=== PATIENT | male | born 1975 | race Caucasian/White ===

== ENCOUNTER 2018-07-01 09:56 | Inpatient (IN) | payer OTHER ==
[2018-07-01 10:25] VITALS: BMI 21.2
--- NOTE | 2018-07-01 10:46 | HP ---
CIWA Score - CIWA Score Nausea/Vomitin Muscle Tremors: 2 Anxiety: 2 Agitation: 2 Paroxysmal Sweats: 1-Minimal Palms Moist Orientation: 0-Oriented Tacttile Disturbances: 1-Very Mild Itch/Numbness Auditory Disturbances: 1-Very Mild Visual Disturbances: 0-None Headache: 2-Mild CIWA-Ar Total Score: 13 Admission ROS BHS - HPI Chief Complaint: ii need help to stop drinking alcohol Allergies/Adverse Reactions: Allergies Allergy/AdvReac Type Severity Reaction Status Date / Time No Known Allergies Allergy Verified 07/01/18 10:43 History of Present Illness: this 43 years old male with alcohol and cocaine dependence,seeking detox, withdral symptom,last detox in 2013 in [place] history of blackout bilateral inguinal hernia right inguinal hernia repair in 2016 but recur weight loss insomnia nicotine dependence - Ebola screening Have you traveled outside of the country in the last 21 days: No Have you had contact with anyone from an Ebola affected area: No Have you been sick,other than usual withdrawal symptoms: No Do you have a fever: No - Review of Systems Constitutional: Loss of Appetite, Night Sweats, Changes in sleep, Weakness, Unintentional Wgt. Loss EENT: reports: Nose Congestion Respiratory: reports: No Symptoms reported Cardiac: reports: No Symptoms Reported GI: reports: Nausea, Poor Appetite, Abdominal cramping Musculoskeletal: reports: Back Pain, Muscle Pain Integumentary: reports: Dryness Neuro: reports: Headache, Tremors Endocrine: reports: No Symptoms Reported Hematology: reports: No Symptoms Reported Psychiatric: reports: No Sypmtoms Reported, Judgement Intact, Mood/Affect Appropiate, Orientated x3 Patient History - Patient Medical History Hx Anemia: No Hx Asthma: No Hx Chronic Obstructive Pulmonary Disease (COPD): No Hx Cancer: No Hx Cardiac Disorders: No Hx Congestive Heart Failure: No Hx Hypertension: No Hx Hypercholesterolemia: No Hx Pacemaker: No HX Cerebrovascular Accident: No Hx Seizures: No Hx Dementia: No Hx Diabetes: No Hx Gastrointestinal Disorders: No Hx Liver Disease: No Hx Genitourinary Disorders: No Hx Sexually Transmitted Disorders: No Hx Renal Disease (ESRD): No Hx Thyroid Disease: No Hx Human Immunodeficiency Virus (HIV): No (last 2017 negative) Hx Hepatitis C: No Hx Depression: No Hx Suicide Attempt: No Hx Bipolar Disorder: No Hx Schizophrenia: No Other Medical History: insomnia,no suicidal,no homicidal,inguinal hernia bilarteral - Patient Surgical History Past Surgical History: Yes Other Surgical History: right inguinal hernia repair in 2016 - PPD History Previous Implant?: Yes Documented Results: Negative w/o proof Implanted On Prior [facility] Admission?: No PPD to be Administered?: Yes - Smoking Cessation Smoking history: Current every day smoker Have you smoked in the past 12 months: Yes Aproximately how many cigarettes per day: 20 Cigars Per Day: 0 Hx Chewing Tobacco Use: No Initiated information on smoking cessation: Yes 'Breaking Loose' booklet given: 07/01/18 - Substance & Tx. History Hx Alcohol Use: Yes Hx Substance Use: Yes Substance Use Type: Alcohol, Cocaine Hx Substance Use Treatment: Yes (in [place]) - Substances Abused Alcohol-rum/beer Route: Oral Frequency: Daily Amount used: 1 pt./3-4 6 pks. Age of first use: 15 Date of Last Use: 06/30/18 Crack Route: Smoking Frequency: Daily Amount used: 100$ Age of first use: 38 Date of Last Use: 06/30/18 Family Disease History - Family Disease History Family History: Denies Admission Physical Exam S - Vital Signs Vital Signs: Vital Signs - 24 hr 07/01/18 10:22 Temperature 98.1 F Pulse Rate 72 Respiratory 18 Rate Blood Pressure 107/68 - Physical General Appearance: Yes: Moderate Distress, Tremorous, Irritable, Sweating, Anxious HEENTM: Yes: Normal ENT Inspection, NAVI, Pharynx Normal Respiratory: Yes: Within Normal Limits, Lungs Clear, Normal Breath Sounds Neck: Yes: Within Normal Limits, Supple, Trachea in good position Breast: Yes: Within Normal Limits Cardiology: Yes: Within Normal Limits, Regular Rhythm, Regular Rate, S1, S2 Abdominal: Yes: Within Normal Limits, Normal Bowel Sounds, Non Tender, Flat, Soft, Surgical Scar (right inguinal scar with hernia left inguinal hernia) Genitourinary: Yes: Within Normal Limits Back: Yes: Muscle Spasm Musculoskeletal: Yes: Back pain, Muscle Pain Extremities: Yes: Within Normal Limits, Normal Range of Motion, Tremors Neurological: Yes: green coffee blender II-XII NML intact, Fully Oriented, Alert, Motor Strength 5/5 Integumentary: Yes: Dry Lymphatic: Yes: Within Normal Limits - Diagnostic (1) Alcohol dependence with uncomplicated withdrawal Current Visit: Yes Status: Acute (2) Cocaine dependence Current Visit: Yes Status: Acute (3) Nicotine dependence Current Visit: Yes Status: Acute (4) Weight loss Current Visit: Yes Status: Acute (5) Insomnia Current Visit: Yes Status: Acute (6) Inguinal hernia, bilateral Current Visit: Yes Status: Acute (7) Recurrent right inguinal hernia Current Visit: Yes Status: Acute Cleared for Admission BHS - Detox or Rehab S Level of Care: Medically Managed Detox Regimen/Protocol: Librium BHS Breath Alcohol Content Breath Alcohol Content: 0 Urine Drug Screen - Results Drug Screen Negative: No Urine Drug Screen Results: CRISTOBAL-Cocaine
[2018-07-01] MEDS ORDERED: IBUPROFEN 400 MG TABLET (FP) PO PRN (11:05)
[2018-07-01] MEDS ORDERED: MAGNESIUM CITRATE 300 ML BOTTLE PO PRN (11:05)
[2018-07-01] MEDS ORDERED: ACETAMINOPHEN 325 MG TABLET (FP) PO PRN (11:05)
[2018-07-01] MEDS ORDERED: LOPERAMIDE HCL 2 MG CAPSULE PO PRN (11:05)
[2018-07-01] MEDS ORDERED: NICOTINE POLACRILEX 2 MG GUM BUC PRN (11:05)
[2018-07-01] MEDS ORDERED: chlordiazePOXIDE HCL 25 MG CAPSULE PO PRN (11:05)
[2018-07-01] MEDS ORDERED: MAGNESIUM HYDROX 2400MG/30ML ORAL SUSPENSION 30 ML CUP PO PRN (11:05)
[2018-07-01] MEDS ORDERED: MAG HYDROX/AL HYDROX/SIMETH 30 ML UNIT-DOSE CUP PO PRN (11:05)
[2018-07-01] MEDS ORDERED: P-EPHED 60MG/TRIPROLIDI 2.5MG TABLET PO PRN (11:05)
[2018-07-01] MEDS: NICOTINE 21 MG/24 HOURS TOPICAL PATCH TD SCH (12:17)
--- NOTE | 2018-07-01 15:38 | EKG ---
Test Reason : Blood Pressure : / mmHG Vent. Rate : 060 BPM Atrial Rate : 060 BPM P-R Int : 130 ms QRS Dur : 084 ms QT Int : 410 ms P-R-T Axes : 048 028 034 degrees QTc Int : 410 ms NORMAL SINUS RHYTHM NORMAL ECG NO PREVIOUS ECGS AVAILABLE Confirmed by KAYKAY NICOLE, MARS ([id number]) on 07/01/2018 3:38:23 PM Referred By: Confirmed By:MARS MCCRACKEN MD
[2018-07-01] MEDS: chlordiazePOXIDE HCL 25 MG CAPSULE PO SCH ×2 (17:33→22:10)
[2018-07-01 19:27] LABS: URINE APPEARANCE CLEAR; URINE BILIRUBIN NEGATIVE (<2.0 mg/dL); URINE COLOR DKYELLOW; URINE GLUCOSE (UA) NEGATIVE (NEGATIVE); URINE KETONE NEGATIVE (NEGATIVE); URINE LEUK ESTERASE NEGATIVE (NEGATIVE); URINE NITRITE NEGATIVE (NEGATIVE); URINE PROTEIN 1+ (NEGATIVE)
[2018-07-01 19:29] LABS: EPI CELLS RARE /HPF (FEW); URINE MUCUS FEW
[2018-07-01] MEDS: THIAMINE HCL 100 MG TABLET (FP) PO SCH (22:09)
[2018-07-02] MEDS: chlordiazePOXIDE HCL 25 MG CAPSULE PO SCH ×3 (05:50→22:22)
[2018-07-02] MEDS ORDERED: chlordiazePOXIDE HCL 25 MG CAPSULE PO PRN (09:59)
[2018-07-02] MEDS ORDERED: chlordiazePOXIDE HCL 25 MG CAPSULE PO SCH ×2 (09:59→17:00)
[2018-07-02 10:20] LABS: HEMATOCRIT 45.9 % (35.4-49); HEMOGLOBIN 14.8 GM/dL (11.7-16.9); MCH 31.8 pg (25.7-33.7); MCHC 32.2 g/dl (32.0-35.9); MEAN CELL VOLUME 98.9 fl (80-96); MEAN PLT VOLUME 7.8 fl (7.5-11.1); PLATELET COUNT 253 K/MM3 (134-434); RBC 4.64 M/mm3 (4.00-5.60); WHITE BLOOD COUNT 7.2 K/mm3 (4.0-10.0)
[2018-07-02] MEDS: PRENATAL VITAMINS W/ FOLIC ACID TABLET (FP) PO SCH (10:20)
[2018-07-02] MEDS: NICOTINE 21 MG/24 HOURS TOPICAL PATCH TD SCH (10:22)
[2018-07-02 10:38] LABS: ALBUMIN 3.7 g/dl (3.4-5.0); ALK PHOS 73 U/L (45-117); ANION GAP 8 MMOL/L (8-16); BILIRUBIN,TOTAL 0.4 mg/dL (0.2-1); BLOOD UREA NITROGEN 10 mg/dL (7-18); CALCIUM 8.7 mg/dL (8.5-10.1); CHLORIDE 106 mmol/L (98-107); CO2 27 mmol/L (21-32); CREATININE 0.8 mg/dL (0.55-1.3); GLUCOSE,RANDOM 96 mg/dL (74-106); POTASSIUM 4.5 mmol/L (3.5-5.1); SGOT/AST 20 U/L (15-37); SGPT/ALT 20 U/L (13-61); SODIUM 141 mmol/L (136-145); TOT PROT 6.8 g/dl (6.4-8.2)
--- NOTE | 2018-07-02 14:48 | PN ---
S CIWA - CIWA Score Nausea/Vomitin Muscle Tremors: 4-Moderate,w/Arms Extend Anxiety: 4-Mod. Anxious/Guarded Agitation: 3 Paroxysmal Sweats: 3 Orientation: 0-Oriented Tacttile Disturbances: 0-None Auditory Disturbances: 0-None Visual Disturbances: 0-None Headache: 0-None Present CIWA-Ar Total Score: 16 S Progress Note (SOAP) Subjective: Tremor, chills Objective: 07/02/18 14:43 Last Vital Signs Temp Pulse Resp BP Pulse Ox 98.0 F 72 18 104/62 07/02/18 13:19 07/02/18 13:19 07/02/18 13:19 07/02/18 13:19 Laboratory Tests 07/01/18 07/01/18 07/02/18 12:00 14:30 06:00 WBC 7.2 RBC 4.64 Hgb 14.8 Hct 45.9 MCV 98.9 H MCH 31.8 MCHC 32.2 RDW 13.0 Plt Count 253 MPV 7.8 Sodium Potassium Chloride Carbon Dioxide Anion Gap BUN Creatinine Creat Clearance w eGFR Random Glucose Calcium Total Bilirubin AST ALT Alkaline Phosphatase Total Protein Albumin Urine Color Dkyellow Urine Appearance Clear Urine pH 5.0 Ur Specific [place] 1.027 Urine Protein 1+ H Urine Glucose (UA) Negative Urine Ketones Negative Urine Blood 1+ H Urine Nitrite Negative Urine Bilirubin Negative Urine Urobilinogen 2.0 Ur Leukocyte Esterase Negative Urine WBC (Auto) 3 Urine RBC (Auto) 15 Ur Epithelial Cells Rare Urine Mucus Few RPR Titer HIV 1&2 Antibody Screen Negative HIV P24 Antigen Negative 07/02/18 07/02/18 06:00 06:00 WBC RBC Hgb Hct MCV MCH MCHC RDW Plt Count MPV Sodium 141 Potassium 4.5 Chloride 106 Carbon Dioxide 27 Anion Gap 8 BUN 10 Creatinine 0.8 Creat Clearance w eGFR > 60 Random Glucose 96 Calcium 8.7 Total Bilirubin 0.4 AST 20 ALT 20 Alkaline Phosphatase 73 Total Protein 6.8 Albumin 3.7 Urine Color Urine Appearance Urine pH Ur Specific [place] Urine Protein Urine Glucose (UA) Urine Ketones Urine Blood Urine Nitrite Urine Bilirubin Urine Urobilinogen Ur Leukocyte Esterase Urine WBC (Auto) Urine RBC (Auto) Ur Epithelial Cells Urine Mucus RPR Titer Nonreactive HIV 1&2 Antibody Screen HIV P24 Antigen Labs reviewed: abnormal UA Assessment: 07/02/18 14:48 Withdrawal symptoms Noted with abnormal UA Plan: Continue detox Abnormal UA: encouraged PO water intake, repeat UA
[2018-07-02] MEDS: THIAMINE HCL 100 MG TABLET (FP) PO SCH (22:21)
[2018-07-02] MEDS: MELATONIN 5 MG TABLETS PO PRN (22:22)
[2018-07-03] MEDS: chlordiazePOXIDE HCL 25 MG CAPSULE PO SCH ×2 (06:37→10:30)
[2018-07-03] MEDS: PRENATAL VITAMINS W/ FOLIC ACID TABLET (FP) PO SCH (10:30)
[2018-07-03] MEDS: NICOTINE 14 MG/24 HOURS TOPICAL PATCH TD SCH (10:30)
--- NOTE | 2018-07-03 15:08 | PN ---
S CIWA - CIWA Score Nausea/Vomitin-Mild Nausea/No Vomiting Muscle Tremors: 3 Anxiety: 2 Agitation: 3 Paroxysmal Sweats: 3 Orientation: 0-Oriented Tacttile Disturbances: 1-Very Mild Itch/Numbness Auditory Disturbances: 0-None Visual Disturbances: 0-None Headache: 1-Very Mild CIWA-Ar Total Score: 14 BHS Progress Note (SOAP) Subjective: Anxious, irritable, agitated, interrupted sleep. Patient stated he wants to leave [facility] because he wants to be reassured of having a rehab bed here on Friday. Lithographic Etcher encouraged patient to speak with his counselor. Patient later decided to stay and complete detox. Objective: 07/03/18 15:06 Last Vital Signs Temp Pulse Resp BP Pulse Ox 98.7 F 74 19 109/63 07/03/18 14:25 07/03/18 14:25 07/03/18 14:25 07/03/18 14:25 Laboratory Tests 07/01/18 07/01/18 07/02/18 12:00 14:30 06:00 WBC 7.2 RBC 4.64 Hgb 14.8 Hct 45.9 MCV 98.9 H MCH 31.8 MCHC 32.2 RDW 13.0 Plt Count 253 MPV 7.8 Sodium Potassium Chloride Carbon Dioxide Anion Gap BUN Creatinine Creat Clearance w eGFR Random Glucose Calcium Total Bilirubin AST ALT Alkaline Phosphatase Total Protein Albumin Urine Color Dkyellow Urine Appearance Clear Urine pH 5.0 Ur Specific [place] 1.027 Urine Protein 1+ H Urine Glucose (UA) Negative Urine Ketones Negative Urine Blood 1+ H Urine Nitrite Negative Urine Bilirubin Negative Urine Urobilinogen 2.0 Ur Leukocyte Esterase Negative Urine WBC (Auto) 3 Urine RBC (Auto) 15 Ur Epithelial Cells Rare Urine Mucus Few RPR Titer HIV 1&2 Antibody Screen Negative HIV P24 Antigen Negative 07/02/18 07/02/18 06:00 06:00 WBC RBC Hgb Hct MCV MCH MCHC RDW Plt Count MPV Sodium 141 Potassium 4.5 Chloride 106 Carbon Dioxide 27 Anion Gap 8 BUN 10 Creatinine 0.8 Creat Clearance w eGFR > 60 Random Glucose 96 Calcium 8.7 Total Bilirubin 0.4 AST 20 ALT 20 Alkaline Phosphatase 73 Total Protein 6.8 Albumin 3.7 Urine Color Urine Appearance Urine pH Ur Specific [place] Urine Protein Urine Glucose (UA) Urine Ketones Urine Blood Urine Nitrite Urine Bilirubin Urine Urobilinogen Ur Leukocyte Esterase Urine WBC (Auto) Urine RBC (Auto) Ur Epithelial Cells Urine Mucus RPR Titer Nonreactive HIV 1&2 Antibody Screen HIV P24 Antigen Labs reviewed: UA abnormal Assessment: 07/03/18 15:07 Withdrawal symptoms Noted with abnormal UA Plan: Continue detox Abnormal UA: encouraged PO water intake, follow up on repeated UA result
[2018-07-03 16:22] LABS: URINE APPEARANCE SLCLOUDY; URINE BILIRUBIN NEGATIVE (<2.0 mg/dL); URINE COLOR AMBER; URINE GLUCOSE (UA) NEGATIVE (NEGATIVE); URINE KETONE TRACE (NEGATIVE); URINE LEUK ESTERASE TRACE (NEGATIVE); URINE NITRITE NEGATIVE (NEGATIVE); URINE PROTEIN 2+ (NEGATIVE)
[2018-07-03 16:37] LABS: URINE MUCUS MANY
[2018-07-03] MEDS ORDERED: chlordiazePOXIDE 5 MG CAPSULE PO SCH (17:00)
[2018-07-03] MEDS: chlordiazePOXIDE 5 MG CAPSULE PO SCH ×2 (17:35→22:22)
[2018-07-03] MEDS: THIAMINE HCL 100 MG TABLET (FP) PO SCH (22:22)
[2018-07-03] MEDS: MELATONIN 5 MG TABLETS PO PRN (22:23)
[2018-07-04] MEDS: guaiFENesin/D-METHORPHAN HB 10 ML UNIT-DOSE CUPS PO PRN (05:51)
[2018-07-04] MEDS: MENTHOL/PHENOL 1 EACH UD MM PRN (05:51)
[2018-07-04] MEDS: chlordiazePOXIDE 5 MG CAPSULE PO SCH ×2 (05:51→10:35)
--- NOTE | 2018-07-04 09:54 | PN ---
[facility] Progress Note Note: Vital Signs Temperature 96.0 F L 07/04/18 09:06 Pulse Rate 70 07/04/18 09:06 Respiratory Rate 20 07/04/18 09:06 Blood Pressure 108/68 07/04/18 09:06 O2 Sat by Pulse Oximetry (%) Laboratory Last Values WBC 7.2 K/mm3 (4.0-10.0) 07/02/18 06:00 RBC 4.64 M/mm3 (4.00-5.60) 07/02/18 06:00 Hgb 14.8 GM/dL (11.7-16.9) 07/02/18 06:00 Hct 45.9 % (35.4-49) 07/02/18 06:00 MCV 98.9 fl (80-96) H 07/02/18 06:00 MCH 31.8 pg (25.7-33.7) 07/02/18 06:00 MCHC 32.2 g/dl (32.0-35.9) 07/02/18 06:00 RDW 13.0 % (11.9-15.9) 07/02/18 06:00 Plt Count 253 K/MM3 (134-434) 07/02/18 06:00 MPV 7.8 fl (7.5-11.1) 07/02/18 06:00 Sodium 141 mmol/L (136-145) 07/02/18 06:00 Potassium 4.5 mmol/L (3.5-5.1) 07/02/18 06:00 Chloride 106 mmol/L (98-107) 07/02/18 06:00 Carbon Dioxide 27 mmol/L (21-32) 07/02/18 06:00 Anion Gap 8 MMOL/L (8-16) 07/02/18 06:00 BUN 10 mg/dL (7-18) 07/02/18 06:00 Creatinine 0.8 mg/dL (0.55-1.3) 07/02/18 06:00 Creat Clearance w eGFR > 60 (>60) 07/02/18 06:00 Random Glucose 96 mg/dL (74-106) 07/02/18 06:00 Calcium 8.7 mg/dL (8.5-10.1) 07/02/18 06:00 Total Bilirubin 0.4 mg/dL (0.2-1) 07/02/18 06:00 AST 20 U/L (15-37) 07/02/18 06:00 ALT 20 U/L (13-61) 07/02/18 06:00 Alkaline Phosphatase 73 U/L (45-117) 07/02/18 06:00 Total Protein 6.8 g/dl (6.4-8.2) 07/02/18 06:00 Albumin 3.7 g/dl (3.4-5.0) 07/02/18 06:00 Urine Color Al[place] 07/03/18 11:20 Urine Appearance Slcloudy 07/03/18 11:20 Urine pH 5.0 (5.0-8.0) 07/03/18 11:20 Ur Specific [place] 1.035 (1.010-1.035) 07/03/18 11:20 Urine Protein 2+ (NEGATIVE) H 07/03/18 11:20 Urine Glucose (UA) Negative (NEGATIVE) 07/03/18 11:20 Urine Ketones Trace (NEGATIVE) H 07/03/18 11:20 Urine Blood 1+ (NEGATIVE) H 07/03/18 11:20 Urine Nitrite Negative (NEGATIVE) 07/03/18 11:20 Urine Bilirubin Negative (<2.0 mg/dL) 07/03/18 11:20 Urine Urobilinogen 2.0 mg/dL (0.2-1.0) 07/03/18 11:20 Ur Leukocyte Esterase Trace (NEGATIVE) 07/03/18 11:20 Urine WBC (Auto) 2 /hpf (3-5) 07/03/18 11:20 Urine RBC (Auto) 10 /hpf (0-3) 07/03/18 11:20 Ur Epithelial Cells Rare /HPF (FEW) 07/01/18 14:30 Urine Mucus Many 07/03/18 11:20 RPR Titer Nonreactive (NONREACTIVE) 07/02/18 06:00 HIV 1&2 Antibody Screen Negative 07/01/18 12:00 HIV P24 Antigen Negative 07/01/18 12:00 c/o of back pain, fatigue, interrupted sleep Aox3 no distress full ROM ambulatory skin intact withdrawal sx increase Po fluids continue detox Patient follow up with PCP 1-2 weeks upon discharge re: microscopic hematuria, patient verbalizes understanding.
[2018-07-04] MEDS: NICOTINE 14 MG/24 HOURS TOPICAL PATCH TD SCH (10:33)
[2018-07-04] MEDS: PRENATAL VITAMINS W/ FOLIC ACID TABLET (FP) PO SCH (10:33)
[2018-07-04] MEDS ORDERED: chlordiazePOXIDE HCL 10 MG CAPSULE PO SCH (17:00)
[2018-07-04] MEDS: chlordiazePOXIDE HCL 10 MG CAPSULE PO SCH ×2 (17:20→22:08)
[2018-07-04] MEDS: THIAMINE HCL 100 MG TABLET (FP) PO SCH (22:08)
[2018-07-04] MEDS: MELATONIN 5 MG TABLETS PO PRN (22:08)
[2018-07-05] MEDS: MENTHOL/PHENOL 1 EACH UD MM PRN ×2 (01:49→10:31)
[2018-07-05] MEDS: guaiFENesin/D-METHORPHAN HB 10 ML UNIT-DOSE CUPS PO PRN ×2 (01:49→10:31)
[2018-07-05] MEDS: chlordiazePOXIDE HCL 10 MG CAPSULE PO SCH ×2 (05:27→10:30)
[2018-07-05 09:37] VITALS: BP 115/76; PULSE 94; TEMP 98.2
[2018-07-05] MEDS: PRENATAL VITAMINS W/ FOLIC ACID TABLET (FP) PO SCH (10:30)
[2018-07-05] MEDS: NICOTINE 14 MG/24 HOURS TOPICAL PATCH TD SCH (10:30)
--- NOTE | 2018-07-05 13:03 | DS ---
[facility] Detox Discharge Summary Admission Date: 07/01/18 Discharge Date: 07/05/18 - History Present History: Alcohol Dependence, Cocaine Dependence Pertinent Past History: Alcohol dependence Cocaine dependence Nicotine dependence Inguinal hernia - Physical Exam Results Vital Signs: Vital Signs Temperature 98.2 F 07/05/18 09:33 Pulse Rate 94 H 07/05/18 09:33 Respiratory Rate 20 07/05/18 09:33 Blood Pressure 115/76 07/05/18 09:33 O2 Sat by Pulse Oximetry (%) Pertinent Admission Physical Exam Findings: Withdrawal symptoms Laboratory Tests 07/01/18 07/01/18 07/02/18 12:00 14:30 06:00 WBC 7.2 RBC 4.64 Hgb 14.8 Hct 45.9 MCV 98.9 H MCH 31.8 MCHC 32.2 RDW 13.0 Plt Count 253 MPV 7.8 Sodium Potassium Chloride Carbon Dioxide Anion Gap BUN Creatinine Creat Clearance w eGFR Random Glucose Calcium Total Bilirubin AST ALT Alkaline Phosphatase Total Protein Albumin Urine Color Dkyellow Urine Appearance Clear Urine pH 5.0 Ur Specific [place] 1.027 Urine Protein 1+ H Urine Glucose (UA) Negative Urine Ketones Negative Urine Blood 1+ H Urine Nitrite Negative Urine Bilirubin Negative Urine Urobilinogen 2.0 Ur Leukocyte Esterase Negative Urine WBC (Auto) 3 Urine RBC (Auto) 15 Ur Epithelial Cells Rare Urine Mucus Few RPR Titer HIV 1&2 Antibody Screen Negative HIV P24 Antigen Negative 07/02/18 07/02/18 07/03/18 06:00 06:00 11:20 WBC RBC Hgb Hct MCV MCH MCHC RDW Plt Count MPV Sodium 141 Potassium 4.5 Chloride 106 Carbon Dioxide 27 Anion Gap 8 BUN 10 Creatinine 0.8 Creat Clearance w eGFR > 60 Random Glucose 96 Calcium 8.7 Total Bilirubin 0.4 AST 20 ALT 20 Alkaline Phosphatase 73 Total Protein 6.8 Albumin 3.7 Urine Color Aline Urine Appearance Slcloudy Urine pH 5.0 Ur Specific [place] 1.035 Urine Protein 2+ H Urine Glucose (UA) Negative Urine Ketones Trace H Urine Blood 1+ H Urine Nitrite Negative Urine Bilirubin Negative Urine Urobilinogen 2.0 Ur Leukocyte Esterase Trace Urine WBC (Auto) 2 Urine RBC (Auto) 10 Ur Epithelial Cells Urine Mucus Many RPR Titer Nonreactive HIV 1&2 Antibody Screen HIV P24 Antigen Labs reviewed: persistent hematuria and proteinuria; instructed to follow up with PCP post discharge and to drink more water. Monitor UA periodically. - Treatment Hospital Course: Detox Protocol Followed, Detoxed Safely, Responded well, Discharged Condition Good, Rehab Referral Accepted - Medication Discharge Medications: Ambulatory Orders NK [No Known Home Medication] 07/01/18 - Diagnosis (1) Abnormal finding on urinalysis Current Visit: Yes Status: Acute (2) Alcohol dependence with uncomplicated withdrawal Current Visit: Yes Status: Acute (3) Cocaine dependence Current Visit: Yes Status: Chronic (4) Inguinal hernia, bilateral Current Visit: Yes Status: Chronic (5) Insomnia Current Visit: Yes Status: Acute (6) Nicotine dependence Current Visit: Yes Status: Chronic - AMA Did Patient Leave Against Medical Advice: No (Patient accepted to [facility])
== END 2018-07-05 12:52 | disposition other institution (70) | DRG 774 ==
LOC: YASAS 09:56 → Y3N 11:06
PROC: HZ2ZZZZ Detoxification Services for Substance Abuse Treatment (ICD-10-PCS; principal; 2018-07-01)
DX: F10.230 Alcohol dependence with withdrawal, uncomplicated (principal); F14.20 Cocaine dependence, uncomplicated; F17.210 Nicotine dependence, cigarettes, uncomplicated; G47.00 Insomnia, unspecified; K40.91 Unilateral inguinal hernia, without obstruction or gangrene, recurrent; K40.20 Bilateral inguinal hernia, without obstruction or gangrene, not specified as recurrent; R82.90 Unspecified abnormal findings in urine; R63.4 Abnormal weight loss; Z68.21 Body mass index [BMI] 21.0-21.9, adult
CPT/HCPCS: 36415; 80053; 81003; 81015; 85027; 86593; 87389; 93005; 93010

== ENCOUNTER 2019-02-22 11:21 | Inpatient (IN) | payer OTHER | END 2019-02-25 12:25 | disposition other institution (70) | LOC: YASAS 11:21 → Y6N 14:32 ==

== ENCOUNTER 2019-02-25 12:41 | Inpatient (IN) | payer OTHER ==
[2019-02-25] MEDS ORDERED: IBUPROFEN 400 MG TABLET (FP) PO PRN (15:31)
[2019-02-25] MEDS ORDERED: NICOTINE POLACRILEX 4 MG GUM BUC PRN (15:31)
[2019-02-25] MEDS ORDERED: ACETAMINOPHEN 325 MG TABLET (FP) PO PRN (15:31)
[2019-02-25] MEDS ORDERED: MENTHOL/PHENOL 1 EACH UD MM PRN (15:31)
[2019-02-25] MEDS ORDERED: MAGNESIUM CITRATE 300 ML BOTTLE PO PRN (15:31)
[2019-02-25] MEDS ORDERED: MAGNESIUM HYDROX 2400MG/30ML ORAL SUSPENSION 30 ML CUP PO PRN (15:31)
[2019-02-25] MEDS ORDERED: guaiFENesin 200 MG/10 ML 10 ML UNIT-DOSE CUPS PO PRN (15:31)
[2019-02-25] MEDS ORDERED: P-EPHED 60MG/TRIPROLIDI 2.5MG TABLET PO PRN (15:31)
[2019-02-25] MEDS ORDERED: LOPERAMIDE HCL 2 MG CAPSULE PO PRN (15:31)
[2019-02-25] MEDS ORDERED: MAG HYDROX/AL HYDROX/SIMETH 30 ML UNIT-DOSE CUP PO PRN (15:31)
--- NOTE | 2019-02-25 15:31 | HP ---
[facility] Rehab Assess/Revision - Admission History Admitted to Rehab from[facility] - Findings Detox History & Physical reviewed: Yes Concur with findings: Yes Inpatient Rehab Admission - Rehab Decision to Admit Inpatient rehab admission?: Yes - Initial Determination Are CD services needed?: Yes Free of communicable disease: Yes Not in need of hospitalization: Yes - Rehab Admission Criteria Previous failed treatment: Yes Poor recovery environment: Yes Comorbidities: Yes Lacks judgement: Yes Patient is meeting Inpatient Rehab admission criteria:: Yes
[2019-02-25] MEDS: THIAMINE HCL 100 MG TABLET (FP) PO SCH (21:41)
[2019-02-25] MEDS: MELATONIN 5 MG TABLETS PO PRN (21:42)
[2019-02-26] MEDS: NICOTINE 21 MG/24 HOURS TOPICAL PATCH TD SCH (09:44)
[2019-02-26] MEDS: PRENATAL VITAMINS W/ FOLIC ACID TABLET (FP) PO SCH (09:44)
[2019-02-26] MEDS: hydrOXYzine PAMOATE 50 MG CAPSULE (FP) PO PRN (13:20)
--- NOTE | 2019-02-26 15:39 | PN ---
[facility] Progress Note Note: Pt here requesting ensure and more pain meds. Pt here for rehab from crack cocaine, cocaine, THC.
[2019-02-26] MEDS: METHYL SALICYLATE/MENTHOL OINT 30 GM TUBE TP SCH (21:07)
[2019-02-26] MEDS: THIAMINE HCL 100 MG TABLET (FP) PO SCH (21:08)
[2019-02-26] MEDS: MELATONIN 5 MG TABLETS PO PRN (21:08)
[2019-02-27] MEDS: PRENATAL VITAMINS W/ FOLIC ACID TABLET (FP) PO SCH (09:29)
[2019-02-27] MEDS: METHYL SALICYLATE/MENTHOL OINT 30 GM TUBE TP SCH ×2 (09:29→22:01)
[2019-02-27] MEDS: NICOTINE 21 MG/24 HOURS TOPICAL PATCH TD SCH (09:29)
[2019-02-27] MEDS: hydrOXYzine PAMOATE 50 MG CAPSULE (FP) PO PRN (15:16)
[2019-02-27] MEDS ORDERED: PT OWN MED DRAWER 7, Y5N ONE (19:46)
[2019-02-27] MEDS: MELATONIN 5 MG TABLETS PO PRN (22:01)
[2019-02-27] MEDS: THIAMINE HCL 100 MG TABLET (FP) PO SCH (22:02)
[2019-02-28] MEDS ORDERED: PT OWN MED DRAWER 7, Y5N ONE (09:49)
[2019-02-28] MEDS: METHYL SALICYLATE/MENTHOL OINT 30 GM TUBE TP SCH ×2 (10:10→21:19)
[2019-02-28] MEDS: NICOTINE 21 MG/24 HOURS TOPICAL PATCH TD SCH (10:10)
[2019-02-28] MEDS: PRENATAL VITAMINS W/ FOLIC ACID TABLET (FP) PO SCH (10:10)
[2019-02-28] MEDS: hydrOXYzine PAMOATE 50 MG CAPSULE (FP) PO PRN ×2 (11:11→21:19)
[2019-02-28] MEDS: THIAMINE HCL 100 MG TABLET (FP) PO SCH (21:19)
[2019-02-28] MEDS: MELATONIN 5 MG TABLETS PO PRN (21:19)
[2019-03-01] MEDS: PRENATAL VITAMINS W/ FOLIC ACID TABLET (FP) PO SCH (10:42)
[2019-03-01] MEDS: NICOTINE 21 MG/24 HOURS TOPICAL PATCH TD SCH (10:42)
[2019-03-01] MEDS: LIDOCAINE 5% TOPICAL PATCH TP SCH (10:43)
--- NOTE | 2019-03-01 12:24 | PN ---
[facility] Progress Note Note: PATIENT SEEN FOR C/O LBP AND INSOMNIA. PATIENT REPORTS HAVING HX OF SCIATICA AND OA. TREATED WITH IBUPROFEN/APAP IN PAST WITH NO PAIN RELIEF. ALSO STATES CURRENT DOSE OF MELATONIN 5MG HS NOT EFFECTIVE FOR INSOMNIA. Vital Signs Temperature 97.8 F 03/01/19 07:04 Pulse Rate 66 03/01/19 07:04 Respiratory Rate 18 03/01/19 07:04 Blood Pressure 116/69 03/01/19 07:04 O2 Sat by Pulse Oximetry (%) PE: ALERT AND ORIENTED X 3 SKIN WARM AND DRY +PERRLA, EOMS INTACT BL EXT FULL ROM, NO TREMORS, NO EDEMA MS + MILD TACTILE TENDERNESS TO LS SPINE AREA AMB AD FOREIGN A/P: LBP INSOMNIA WILL ORDER LIDOCAINE PATCH TO LOWER BACK DAILY D/C IBUPROFEN ADD ROBAXIN 500MG TID INCREASE MELATONIN TO 10MG HS RECONSULT PSYCH
[2019-03-01] MEDS: METHOCARBAMOL 500 MG TABLET PO SCH ×2 (13:40→21:54)
--- NOTE | 2019-03-01 17:41 | CONSULT ---
[facility] Psychiatric Consult - Data Date of interview: 03/01/19 Admission source: [facility] Identifying data: Readmission to [facility] for this 43 y/o male, sent to [address] for rehabilitative care addressing substance use disorder (cocaine, alcohol,cannabis, nicotine). Completed detoxification on . 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 Substance Abuse History: Confirmed by patient in this interview. Details in current [facility] report as follows : Smoking history: Current every day smoker. Have you smoked in the past 12 months: Yes. Aproximately how many cigarettes per day: 20. Cigars Per Day: 0. Hx Chewing Tobacco Use: No. Initiated information on smoking cessation: Yes. 'Breaking Loose' booklet given: . - Substance & Tx. History. Hx Alcohol Use: Yes. Hx Substance Use: Yes. Substance Use Type: Alcohol, Cocaine, Marijuana. Hx Substance Use Treatment: Yes. - Substances abused. Alcohol. Substance route: Oral. Frequency: Daily. Amount used: 3-6 packs beer, pint Barcardi. Age of first use: 15. Date of last use: 02/21/19. Crack. Substance route: Smoking. Frequency: Daily. Amount used: 1 pack/day. Age of first use: 15. Date of last use: 02/21. Cocaine. Substance route: Smoking. Frequency: Daily. Amount used: 1 pack/daily. Age of first use: 15. Date of last use: 02/21/19. Marijuana/ Hashish. Substance route: Smoking. Frequency: 3-6 times per week. Amount used : 1 blunt/day. Age of first use: 15. Date of last use: 02/21/19. Heroin. Substance route: Inhalation. Frequency: 1-3 times last 30 days. Amount used: 1 bag. Age of first use: 15. Date of last use: 02/21/19 Medical History: Patient endorses good general health. Noted history of bilateral inguinal herniorraphy. Psychiatric History: Patient denies history of psychiatric hospitalizations or suicide attempts. Mr Mabry reports persistent dysphoria and chronic insomnia attributable, as per self-report, to personal misfortunes (separation from his two daughters, estrangement from now to his best friend, being on parole after serving three years in [facility], homelessness, chronic unemployment, financial constraints, illness of biological mother). Patient has also indicated his chronic non-adherence to referrals after discharge from substance use treatment centers. " I never keep my appointments with doctors outside. ". No prior trial of psychotropic medications. Physical/Sexual Abuse/Trauma History: No reported history of abuse. Refer to Psychiatric history section for details on stressors. Additional Comment: Urine drug screen results: THC-Marijuana, CRISTOBAL-Cocaine. Noted. Mental Status Exam - Mental Status Exam Alert and Oriented to: Time, Place, Person Cognitive Function: Good Patient Appearance: Well Groomed (casually dressed, muscular-built, medium habitus, appearing stated age) Mood: Nervous, Anxious, Apprehensive Affect: Appropriate, Normal Range Patient Behavior: Talkative, Appropriate, Cooperative Speech Pattern: Clear, Appropriate (bilingual) Voice Loudness: Normal Thought Process: Goal Oriented Thought Disorder: Not Present Hallucinations: Denies Suicidal Ideation: Denies Homicidal Ideation: Denies Insight/Judgement: Poor Sleep: Poorly, Difficulty falling asleep Appetite: Good Muscle strength/Tone: Normal Gait/Station: Normal Psychiatric Findings - Problem List ([facility] 1, 2,3) (1) Alcohol dependence with uncomplicated withdrawal Current Visit: Yes Status: Acute (2) Cocaine dependence Current Visit: Yes Status: Chronic Qualifiers: Substance use status: uncomplicated Qualified Code(s): F14.20 - Cocaine dependence, uncomplicated (3) Cannabis dependence Current Visit: Yes Status: Chronic (4) Nicotine dependence Current Visit: Yes Status: Chronic Qualifiers: Nicotine product type: cigarettes Substance use status: uncomplicated Qualified Code(s): F17.210 - Nicotine dependence, cigarettes, uncomplicated (5) Substance induced mood disorder Current Visit: Yes Status: Chronic (6) Insomnia Current Visit: Yes Status: Chronic Qualifiers: Insomnia type: unspecified Qualified Code(s): G47.00 - Insomnia, unspecified - Initial Treatment Plan Initial Treatment Plan: Psychoeducation. Sleep hygiene. Detoxification. Motivational counseling provided in this session. Relapse prevention (MAT) : revisited with patient. No justification for antidepressant medication at this time, in view of chronic substance abuse + absence of longitudinal psychiatric profile. AA/NA meetings. Psychotherapy (group, individual, cognitive). Medication : seroquel 100 mg po hs (insomnia + mood dysregulation + irritability ). Titration to follow. Side effects/benefits discussed with patient. Mr Mabry has expressed his agreement to this plan of care. Verbal consent granted to MD. Caballero.
[2019-03-01] MEDS: THIAMINE HCL 100 MG TABLET (FP) PO SCH (21:53)
[2019-03-01] MEDS: MELATONIN 5 MG TABLETS PO PRN (21:54)
[2019-03-01] MEDS: QUEtiapine FUMARATE 100 MG TABLET (FP) PO SCH (21:54)
[2019-03-01] MEDS: LIDOCAINE PATCH REMOVAL MC SCH (22:50)
[2019-03-02] MEDS: METHOCARBAMOL 500 MG TABLET PO SCH ×3 (06:18→21:07)
[2019-03-02] MEDS: NICOTINE 21 MG/24 HOURS TOPICAL PATCH TD SCH (10:02)
[2019-03-02] MEDS: PRENATAL VITAMINS W/ FOLIC ACID TABLET (FP) PO SCH (10:02)
[2019-03-02] MEDS: LIDOCAINE 5% TOPICAL PATCH TP SCH (10:02)
[2019-03-02] MEDS: hydrOXYzine PAMOATE 50 MG CAPSULE (FP) PO PRN (14:09)
[2019-03-02] MEDS: MELATONIN 5 MG TABLETS PO PRN (21:07)
[2019-03-02] MEDS: QUEtiapine FUMARATE 100 MG TABLET (FP) PO SCH (21:07)
[2019-03-02] MEDS: THIAMINE HCL 100 MG TABLET (FP) PO SCH (21:07)
[2019-03-02] MEDS: LIDOCAINE PATCH REMOVAL MC SCH (21:08)
[2019-03-03] MEDS: METHOCARBAMOL 500 MG TABLET PO SCH ×3 (06:12→21:44)
[2019-03-03] MEDS: PRENATAL VITAMINS W/ FOLIC ACID TABLET (FP) PO SCH (09:57)
[2019-03-03] MEDS: hydrOXYzine PAMOATE 50 MG CAPSULE (FP) PO PRN ×2 (09:57→15:05)
[2019-03-03] MEDS: LIDOCAINE 5% TOPICAL PATCH TP SCH (09:57)
[2019-03-03] MEDS: NICOTINE 21 MG/24 HOURS TOPICAL PATCH TD SCH (09:57)
[2019-03-03] MEDS: THIAMINE HCL 100 MG TABLET (FP) PO SCH (21:44)
[2019-03-03] MEDS: LIDOCAINE PATCH REMOVAL MC SCH (21:44)
[2019-03-03] MEDS: QUEtiapine FUMARATE 100 MG TABLET (FP) PO SCH (21:44)
[2019-03-03] MEDS: MELATONIN 5 MG TABLETS PO PRN (21:45)
[2019-03-04] MEDS: METHOCARBAMOL 500 MG TABLET PO SCH ×3 (05:56→21:42)
[2019-03-04] MEDS: hydrOXYzine PAMOATE 50 MG CAPSULE (FP) PO PRN ×3 (05:56→21:41)
[2019-03-04] MEDS: LIDOCAINE 5% TOPICAL PATCH TP SCH (09:50)
[2019-03-04] MEDS: NICOTINE 21 MG/24 HOURS TOPICAL PATCH TD SCH (09:50)
[2019-03-04] MEDS: PRENATAL VITAMINS W/ FOLIC ACID TABLET (FP) PO SCH (09:50)
[2019-03-04] MEDS: MELATONIN 5 MG TABLETS PO PRN (21:41)
[2019-03-04] MEDS: QUEtiapine FUMARATE 100 MG TABLET (FP) PO SCH (21:42)
[2019-03-04] MEDS: THIAMINE HCL 100 MG TABLET (FP) PO SCH (21:42)
[2019-03-04] MEDS: LIDOCAINE PATCH REMOVAL MC SCH (21:43)
[2019-03-05] MEDS: METHOCARBAMOL 500 MG TABLET PO SCH ×3 (06:14→21:22)
[2019-03-05] MEDS: hydrOXYzine PAMOATE 50 MG CAPSULE (FP) PO PRN ×2 (06:14→13:09)
[2019-03-05] MEDS: LIDOCAINE 5% TOPICAL PATCH TP SCH (09:52)
[2019-03-05] MEDS: PRENATAL VITAMINS W/ FOLIC ACID TABLET (FP) PO SCH (09:52)
[2019-03-05] MEDS: NICOTINE 21 MG/24 HOURS TOPICAL PATCH TD SCH (09:52)
--- NOTE | 2019-03-05 18:33 | PN ---
Psychiatric Progress Note Vital Signs: Vital Signs Period Temp Pulse Resp BP Sys/Milian Pulse Ox Last 24 Hr 97.7 F 72 18-18 99/69 Date of Session: 03/05/19 Chief Complaint:: " I feel depressed and i still can't sleep." HPI: Patient with a history of alcohol, marijuana, and cocaine dependence. ROS: Patient is coherent, alert and oriented X3. Current Medications: Active Medications Generic Name Dose Route Start Last Admin Trade Name Freq PRN Reason Stop Dose Admin Acetaminophen 650 mg 02/25/19 15:31 Tylenol - PO Q4H PRN FEVER Al Hydroxide/Mg Hydroxide 30 ml 02/25/19 15:31 Mylanta Oral Suspension - PO Q6H PRN DYSPEPSIA Eucalyptus/Menthol/Phenol/Sorbitol 1 each 02/25/19 15:31 Cepastat Lozenge - MM Q4H PRN SORE THROAT Guaifenesin 10 ml 02/25/19 15:31 Robitussin - PO Q6H PRN COUGH Hydroxyzine Pamoate 50 mg 02/25/19 15:31 03/05/19 13:09 Vistaril - PO 50 mg Q4H PRN Administration AGITATION Lidocaine 1 patch 03/01/19 10:00 03/05/19 09:52 Lidoderm Patch - TP 1 patch DAILY CONCETTA Administration Loperamide HCl 4 mg 02/25/19 15:31 Imodium - PO Q6H PRN DIARRHEA Magnesium Citrate 300 ml 02/25/19 15:31 Citroma - PO Q48H PRN CONSTIPATION Magnesium Hydroxide 30 ml 02/25/19 15:31 Milk Of Magnesia - PO DAILY PRN CONSTIPATION Melatonin 10 mg 03/01/19 09:46 03/04/19 21:41 Melatonin PO 10 mg HS PRN Administration INSOMNIA Methocarbamol 500 mg 03/01/19 14:00 03/05/19 13:09 Robaxin - PO 500 mg TID CONCETTA Administration Miscellaneous 1 each 03/01/19 22:00 03/04/19 21:43 Lidoderm Patch Removal MC 1 each DAILY@2200 CONCETTA Administration Nicotine 21 mg 02/26/19 10:00 03/05/19 09:52 Nicoderm Patch - TD 21 mg DAILY CONCETTA Administration Nicotine Polacrilex 4 mg 02/25/19 15:31 Nicorette Gum - BUC Q2H PRN NICOTINE REPLACEMENT RX Multivit/Folic Acid/Iron 1 tab 02/26/19 10:00 03/05/19 09:52 Vitamins (Sjr) - PO 1 tab DAILY CONCETTA Administration Pseudoephedrine/Triprolidine 1 combo 02/25/19 15:31 Actifed - PO TID PRN NASAL CONGESTION Quetiapine Fumarate 100 mg 03/01/19 22:00 03/04/19 21:42 Seroquel - PO 100 mg HS CONCETTA Administration Thiamine HCl 100 mg 02/25/19 22:00 03/04/19 21:42 Vitamin B1 - PO 100 mg HS CONCETTA Administration Medication(s) Change(s): Yes. Current Side Effect: No Lab tests ordered: No Lab tests reviewed: Yes Provider note:: Patient reports ongoing depression, sadness, hopeless, and amotivation. Patient denies sucidal and homicidal ideation. States his dysphoria stems from lack of communication with his two daughters, his mothers history of alzheimer's disease, estrangement from now to his best friend, homelessness and unemployment. Patient also reports poor sleep. States the seroquel has been ineffective. Patient agreeable in accepting seroquel 150mg for mood stabilization. Benefits and side effects discussed. Verbal consent given. Mr. Mabry is encouraged to continue to accept melatonin 10mg with seroquel 150gm HS. Patient educated on the importance of sleep hygiene. Patient satisified and receptive to feedback. Total face to face time:: 30 Mental Status Exam - Mental Status Exam Alert and Oriented to: Time, Place, Person Cognitive Function: Good Patient Appearance: Well Groomed Mood: Sad Affect: Appropriate Patient Behavior: Appropriate, Cooperative Speech Pattern: Appropriate (Mainly yoruba speaking. ) Voice Loudness: Normal Thought Process: Goal Oriented Thought Disorder: Not Present Hallucinations: Denies Suicidal Ideation: Denies Homicidal Ideation: Denies Insight/Judgement: Poor Sleep: Poorly Appetite: Fair Muscle strength/Tone: Normal Gait/Station: Normal Psychiatric Treatment Plan - Problem List (1) Alcohol dependence Current Visit: Yes (2) Cannabis dependence Current Visit: Yes (3) Cocaine dependence Current Visit: Yes Qualifiers: Substance use status: uncomplicated Qualified Code(s): F14.20 - Cocaine dependence, uncomplicated (4) Substance induced mood disorder Current Visit: Yes (5) Substance-induced sleep disorder Current Visit: Yes (6) Depressive disorder Current Visit: Yes
[2019-03-05] MEDS: THIAMINE HCL 100 MG TABLET (FP) PO SCH (21:22)
[2019-03-05] MEDS: QUEtiapine FUMARATE 50 MG TABLET PO SCH (21:22)
[2019-03-05] MEDS: MELATONIN 5 MG TABLETS PO PRN (21:22)
[2019-03-05] MEDS: LIDOCAINE PATCH REMOVAL MC SCH (21:24)
[2019-03-06] MEDS: METHOCARBAMOL 500 MG TABLET PO SCH ×3 (05:58→21:41)
[2019-03-06] MEDS: NICOTINE 21 MG/24 HOURS TOPICAL PATCH TD SCH (10:00)
[2019-03-06] MEDS: LIDOCAINE 5% TOPICAL PATCH TP SCH (10:00)
[2019-03-06] MEDS: PRENATAL VITAMINS W/ FOLIC ACID TABLET (FP) PO SCH (10:00)
[2019-03-06] MEDS: hydrOXYzine PAMOATE 50 MG CAPSULE (FP) PO PRN ×2 (15:26→21:42)
[2019-03-06] MEDS: THIAMINE HCL 100 MG TABLET (FP) PO SCH (21:41)
[2019-03-06] MEDS: QUEtiapine FUMARATE 50 MG TABLET PO SCH (21:41)
[2019-03-06] MEDS: MELATONIN 5 MG TABLETS PO PRN (21:41)
[2019-03-06] MEDS: LIDOCAINE PATCH REMOVAL MC SCH (21:43)
[2019-03-07] MEDS: METHOCARBAMOL 500 MG TABLET PO SCH ×3 (06:13→21:16)
[2019-03-07] MEDS: PRENATAL VITAMINS W/ FOLIC ACID TABLET (FP) PO SCH (10:11)
[2019-03-07] MEDS: LIDOCAINE 5% TOPICAL PATCH TP SCH (10:12)
[2019-03-07] MEDS: NICOTINE 21 MG/24 HOURS TOPICAL PATCH TD SCH (10:12)
[2019-03-07] MEDS: hydrOXYzine PAMOATE 50 MG CAPSULE (FP) PO PRN ×3 (10:12→20:13)
[2019-03-07] MEDS: MELATONIN 5 MG TABLETS PO PRN (21:16)
[2019-03-07] MEDS: THIAMINE HCL 100 MG TABLET (FP) PO SCH (21:16)
[2019-03-07] MEDS: QUEtiapine FUMARATE 50 MG TABLET PO SCH (21:16)
[2019-03-07] MEDS: LIDOCAINE PATCH REMOVAL MC SCH (21:17)
[2019-03-08] MEDS: METHOCARBAMOL 500 MG TABLET PO SCH ×3 (06:18→21:24)
[2019-03-08] MEDS: hydrOXYzine PAMOATE 50 MG CAPSULE (FP) PO PRN (06:18)
[2019-03-08] MEDS: LIDOCAINE 5% TOPICAL PATCH TP SCH (09:58)
[2019-03-08] MEDS: PRENATAL VITAMINS W/ FOLIC ACID TABLET (FP) PO SCH (09:58)
[2019-03-08] MEDS: NICOTINE 21 MG/24 HOURS TOPICAL PATCH TD SCH (09:59)
--- NOTE | 2019-03-08 11:00 | PN ---
[facility] Progress Note Note: Patient seen for request to follow up with Psych regarding current treatment for depression. States seroquel is effective but had episode of mild dizziness after taking medication. Patient order psych follow up and placed on fall precautions. Vital Signs Temperature 98 F 03/08/19 06:54 Pulse Rate 77 03/08/19 06:54 Respiratory Rate 18 03/08/19 06:54 Blood Pressure 116/73 03/08/19 06:54 O2 Sat by Pulse Oximetry (%)
--- NOTE | 2019-03-08 13:55 | PN ---
Psychiatric Progress Note Vital Signs: Vital Signs Period Temp Pulse Resp BP Sys/Milian Pulse Ox Last 24 Hr 98 F 77 18-18 116/73 Date of Session: 03/08/19 Chief Complaint:: " The seroquel is working but i get a little dizzy." HPI: Patient admitted to [facility] with history of alcohol, cocaine, cannabis and nicotine dependence. ROS: Patient coherent, alert and oriented X3. Current Medications: Active Medications Generic Name Dose Route Start Last Admin Trade Name Freq PRN Reason Stop Dose Admin Acetaminophen 650 mg 02/25/19 15:31 Tylenol - PO Q4H PRN FEVER Al Hydroxide/Mg Hydroxide 30 ml 02/25/19 15:31 Mylanta Oral Suspension - PO Q6H PRN DYSPEPSIA Eucalyptus/Menthol/Phenol/Sorbitol 1 each 02/25/19 15:31 Cepastat Lozenge - MM Q4H PRN SORE THROAT Guaifenesin 10 ml 02/25/19 15:31 Robitussin - PO Q6H PRN COUGH Hydroxyzine Pamoate 50 mg 02/25/19 15:31 03/08/19 06:18 Vistaril - PO 50 mg Q4H PRN Administration AGITATION Lidocaine 1 patch 03/01/19 10:00 03/08/19 09:58 Lidoderm Patch - TP 1 patch DAILY CONCETTA Administration Loperamide HCl 4 mg 02/25/19 15:31 Imodium - PO Q6H PRN DIARRHEA Magnesium Citrate 300 ml 02/25/19 15:31 Citroma - PO Q48H PRN CONSTIPATION Magnesium Hydroxide 30 ml 02/25/19 15:31 Milk Of Magnesia - PO DAILY PRN CONSTIPATION Melatonin 10 mg 03/01/19 09:46 03/07/19 21:16 Melatonin PO 10 mg HS PRN Administration INSOMNIA Methocarbamol 500 mg 03/01/19 14:00 03/08/19 06:18 Robaxin - PO 500 mg TID CONCETTA Administration Miscellaneous 1 each 03/01/19 22:00 03/07/19 21:17 Lidoderm Patch Removal MC 1 each DAILY@2200 CONCETTA Administration Nicotine 21 mg 02/26/19 10:00 03/08/19 09:59 Nicoderm Patch - TD Not Given DAILY CONCETTA Nicotine Polacrilex 4 mg 02/25/19 15:31 Nicorette Gum - BUC Q2H PRN NICOTINE REPLACEMENT RX Multivit/Folic Acid/Iron 1 tab 02/26/19 10:00 03/08/19 09:58 Vitamins (Sjr) - PO 1 tab DAILY CONCETTA Administration Pseudoephedrine/Triprolidine 1 combo 02/25/19 15:31 Actifed - PO TID PRN NASAL CONGESTION Quetiapine Fumarate 150 mg 03/05/19 22:00 03/07/19 21:16 Seroquel - PO 150 mg HS CONCETTA Administration Thiamine HCl 100 mg 02/25/19 22:00 03/07/19 21:16 Vitamin B1 - PO 100 mg HS CONCETTA Administration Medication(s) Change(s): Yes. Current Side Effect: No Lab tests ordered: No Lab tests reviewed: Yes Provider note:: Seroquel increased from 100mg to 150mg for mood stabilization on 03/05/19. Patient reports improved mood but reports feeling slightly dizzy when accepting seroquel. Patient has accepted seroquel three consective evenings and reports feeling slightly dizzy 2/3 days. Patient encouraged to drink more fluids through out the evening as he reports not drinking enough water. Vital signs within normal limits in the morning. Patient reports feeling much better this morning and wants to continue to accept seroquel 150mg in the evening. Patient encouraged to sit down if he experiences feeling dizzy. Patient denies h/o falls. Willl continue current medications. Total face to face time:: 30 Mental Status Exam - Mental Status Exam Alert and Oriented to: Time, Place, Person Cognitive Function: Good Patient Appearance: Well Groomed Mood: Euthymic Affect: Appropriate Patient Behavior: Appropriate, Cooperative Speech Pattern: Appropriate Voice Loudness: Normal Thought Process: Intact, Goal Oriented Thought Disorder: Not Present Hallucinations: Denies Suicidal Ideation: Denies Homicidal Ideation: Denies Insight/Judgement: Poor Sleep: Fair Appetite: Fair Muscle strength/Tone: Normal Gait/Station: Normal Psychiatric Treatment Plan - Problem List (1) Alcohol dependence Current Visit: Yes (2) Cannabis dependence Current Visit: Yes (3) Cocaine dependence Current Visit: Yes Qualifiers: Substance use status: uncomplicated Qualified Code(s): F14.20 - Cocaine dependence, uncomplicated (4) Substance induced mood disorder Current Visit: Yes (5) Substance-induced sleep disorder Current Visit: Yes (6) Depressive disorder Current Visit: Yes
[2019-03-08] MEDS: QUEtiapine FUMARATE 50 MG TABLET PO SCH (21:23)
[2019-03-08] MEDS: THIAMINE HCL 100 MG TABLET (FP) PO SCH (21:24)
[2019-03-08] MEDS: MELATONIN 5 MG TABLETS PO PRN (21:24)
[2019-03-08] MEDS: LIDOCAINE PATCH REMOVAL MC SCH (22:42)
[2019-03-09] MEDS: METHOCARBAMOL 500 MG TABLET PO SCH ×3 (06:15→21:22)
[2019-03-09] MEDS: hydrOXYzine PAMOATE 50 MG CAPSULE (FP) PO PRN ×2 (06:15→21:23)
[2019-03-09] MEDS: LIDOCAINE 5% TOPICAL PATCH TP SCH (10:01)
[2019-03-09] MEDS: NICOTINE 21 MG/24 HOURS TOPICAL PATCH TD SCH (10:01)
[2019-03-09] MEDS: PRENATAL VITAMINS W/ FOLIC ACID TABLET (FP) PO SCH (10:02)
--- NOTE | 2019-03-09 15:39 | PN ---
[facility] Progress Note (SOAP) Subjective: Patient with c/o left knee pain when ambulating and that his left knee and ankle give out on him when he walks. Hx of osteoarthritis. Objective: PE: No changes in skin color or swelling noted at knee or ankles bilaterally. FULL ROM, walks with limp protecting left leg. 03/09/19 15:37 Assessment: Left knee pain. 03/09/19 15:38 Plan: Cane ordered, advised patient to continue to ambulate as tolerated and take tylenol for pain as needed.
[2019-03-09] MEDS: LIDOCAINE PATCH REMOVAL MC SCH (21:21)
[2019-03-09] MEDS: THIAMINE HCL 100 MG TABLET (FP) PO SCH (21:21)
[2019-03-09] MEDS: MELATONIN 5 MG TABLETS PO PRN (21:22)
[2019-03-09] MEDS: QUEtiapine FUMARATE 50 MG TABLET PO SCH (21:22)
[2019-03-10] MEDS: METHOCARBAMOL 500 MG TABLET PO SCH ×3 (06:57→22:02)
[2019-03-10] MEDS: hydrOXYzine PAMOATE 50 MG CAPSULE (FP) PO PRN ×2 (06:57→10:29)
--- NOTE | 2019-03-10 10:07 | PN ---
[facility] Progress Note (SOAP) Subjective: Patient to be discharged tomorrow. Hospital course: patient has been compliant with the medication regimen. He has attended groups and met with his counselor for individual counseling. He has been seen by psychiatry and prescribed medications as appropriate. Objective: A+O x3, no neurological deficits noted, heart sounds regular, lungs clear, abd soft, non-tender, non-distended, +BS, skin clear, ambulating safely with a cane. 03/10/19 10:03 Vital Signs Period Temp Pulse Resp BP Sys/Milian Pulse Ox Last 24 Hr 97 F 71 16-18 106/67 03/10/19 11:49 Assessment: Medically stable for discharge Discharge Dx: ETOH dependance, chronic Cocaine dependence, chronic Opioid dependence, chronic 03/10/19 11:52 Plan: Patient will seek aftercare at [facility] and states that he has a PCP at [facility]. Does not need any prescriptions transmitted to his pharmacy.
[2019-03-10] MEDS: PRENATAL VITAMINS W/ FOLIC ACID TABLET (FP) PO SCH (10:29)
[2019-03-10] MEDS: NICOTINE 21 MG/24 HOURS TOPICAL PATCH TD SCH (10:30)
[2019-03-10] MEDS: LIDOCAINE 5% TOPICAL PATCH TP SCH (10:30)
[2019-03-10] MEDS: QUEtiapine FUMARATE 50 MG TABLET PO SCH (22:02)
[2019-03-10] MEDS: MELATONIN 5 MG TABLETS PO PRN (22:02)
[2019-03-10] MEDS: THIAMINE HCL 100 MG TABLET (FP) PO SCH (22:02)
[2019-03-10] MEDS: LIDOCAINE PATCH REMOVAL MC SCH (22:03)
[2019-03-11] MEDS: hydrOXYzine PAMOATE 50 MG CAPSULE (FP) PO PRN (06:41)
[2019-03-11] MEDS: METHOCARBAMOL 500 MG TABLET PO SCH (06:41)
[2019-03-11 06:45] VITALS: BP 103/69; PULSE 73; TEMP 97.3
--- NOTE | 2019-03-11 08:44 | PN ---
[facility] Progress Note Note: Psychiatric nurse practitioner note: Patient scheduled for discharge this morning. A 30 day prescription of seroquel 150mg HS was electronically sent to [facility] at [address] [place] [address], [facility].
== END 2019-03-11 08:45 | disposition home or self-care (01) | DRG 772 ==
LOC: YASAS 12:41 → Y3W 12:42
PROVIDERS: ADMIT Neuromusculoskeletal Medicine & OMM; ATTEND Neuromusculoskeletal Medicine & OMM
PROC: HZ42ZZZ Group Counseling for Substance Abuse Treatment, Cognitive-Behavioral (ICD-10-PCS; principal; 2019-02-25)
DX: F11.20 Opioid dependence, uncomplicated (principal); F10.20 Alcohol dependence, uncomplicated; F14.20 Cocaine dependence, uncomplicated; F12.20 Cannabis dependence, uncomplicated; F17.210 Nicotine dependence, cigarettes, uncomplicated; F19.24 Other psychoactive substance dependence with psychoactive substance-induced mood disorder; F19.282 Other psychoactive substance dependence with psychoactive substance-induced sleep disorder; F32.9 Major depressive disorder, single episode, unspecified; M25.561 Pain in right knee; M17.12 Unilateral primary osteoarthritis, left knee; G47.00 Insomnia, unspecified
CPT/HCPCS: 82962

== ENCOUNTER 2019-06-18 13:33 | Inpatient (IN) | payer OTHER ==
[2019-06-18 14:37] VITALS: BMI 24.4
--- NOTE | 2019-06-18 16:19 | HP ---
"CIWA Score - Admission Criteria OASAS Guidelines: Admission for Medically Managed Detox: Requires at least one of the followin. CIWA greater than 12 2. Seizures within the past 24 hours 3. Delirium tremens within the past 24 hours 4. Hallucinations within the past 24 hours 5. Acute intervention needed for co occurring medical disorder 6. Acute intervention needed for co occurring psychiatric disorder 7. Severe withdrawal that cannot be handled at a lower level of care (continued vomiting, continued diarrhea, abnormal vital signs) requiring intravenous medication and/or fluids 8. Admitting History and Physical - Smoking History Smoking history: Current every day smoker Have you smoked in the past 12 months: Yes Aproximately how many cigarettes per day: 20 - Alcohol/Substance Use Hx Alcohol Use: Yes Admission ROS S - HPI Allergies/Adverse Reactions: Allergies Allergy/AdvReac Type Severity Reaction Status Date / Time No Known Allergies Allergy Verified 06/18/19 14:28 History of Present Illness: pt here requesting detox from etoh use , reports 1 case beer/day , latest use 6 days ago , was in detox @ [facility] . nicotine : 1 ppd Search Terms: edward rodriguez, 1975 Search Date: 06/18/2019 04:36:39 PM This report was requested by: Kary Hendricks | Reference #: [id number] There are no results for the search terms that you entered. Exam Limitations: No Limitations - Ebola screening Have you traveled outside of the country in the last 21 days: No Have you had contact with anyone from an Ebola affected area: No Do you have a fever: No - Review of Systems Constitutional: No Symptoms Reported EENT: reports: No Symptoms Reported Respiratory: reports: No Symptoms reported Cardiac: reports: No Symptoms Reported GI: reports: No Symptoms Reported : reports: No Symptoms Reported Musculoskeletal: reports: No Symptoms Reported Integumentary: reports: No Symptoms Reported Neuro: reports: No Symptoms reported Endocrine: reports: No Symptoms Reported Psychiatric: reports: Orientated x3 Patient History - Patient Medical History Hx Anemia: No Hx Asthma: No Hx Chronic Obstructive Pulmonary Disease (COPD): No Hx Cancer: No Hx Cardiac Disorders: No Hx Congestive Heart Failure: No Hx Hypertension: No Hx Hypercholesterolemia: No Hx Pacemaker: No HX Cerebrovascular Accident: No Hx Seizures: Yes Hx Dementia: No Hx Diabetes: No Hx Gastrointestinal Disorders: Yes (GERD) Hx Liver Disease: No Hx Genitourinary Disorders: No Hx Sexually Transmitted Disorders: No Hx Renal Disease (ESRD): No Hx Thyroid Disease: No Hx Human Immunodeficiency Virus (HIV): No (last 2017 negative) Hx Hepatitis C: No Hx Depression: Yes Hx Suicide Attempt: No Hx Bipolar Disorder: No Hx Schizophrenia: No - Patient Surgical History Past Surgical History: Yes Hx Neurologic Surgery: No Hx Cataract Extraction: No Hx Cardiac Surgery: No Hx Lung Surgery: No Hx Breast Surgery: No Hx Breast Biopsy: No Hx Abdominal Surgery: No Hx Appendectomy: No Hx Cholecystectomy: No Hx Genitourinary Surgery: No Hx Section: No Hx Orthopedic Surgery: No Other Surgical History: right inguinal hernia repair in 2016 Anesthesia Reaction: No - PPD History Date: 07/03/18 Results: 0mm - Smoking Cessation Smoking history: Current every day smoker Have you smoked in the past 12 months: Yes Aproximately how many cigarettes per day: 20 Cigars Per Day: 0 Hx Chewing Tobacco Use: No Initiated information on smoking cessation: Yes 'Breaking Loose' booklet given: 06/18/19 - Substances abused Alcohol Substance route: Oral Frequency: Daily Amount used: 3-6 packs beer, pint Barcardi Age of first use: 15 Date of last use: 06/11/19 Crack Substance route: Smoking Frequency: Daily Amount used: 1 pack/day Age of first use: 15 Date of last use: 06/11/19 Cocaine Substance route: Smoking Frequency: Daily Amount used: 1 pack/daily Age of first use: 15 Date of last use: 06/11/19 Marijuana/Hashish Substance route: Smoking Frequency: 3-6 times per week Amount used: 1 blunt/day Age of first use: 15 Date of last use: 06/11/19 Heroin Substance route: Inhalation Frequency: 3-6 times per week Amount used: 2 bag Age of first use: 15 Date of last use: 06/11/19 Alprazolam (Xanax) Substance route: Oral Frequency: 3-6 times per week Amount used: 1 PILL Age of first use: 15 Date of last use: 06/11/19 Admission Physical Exam [facility] - Vital Signs Vital Signs: Vital Signs - 24 hr 06/18/19 14:28 Temperature 98.1 F Pulse Rate 80 Respiratory 18 Rate Blood Pressure 154/101 H - Physical General Appearance: Yes: No Apparent Distress HEENTM: Yes: EOMI, Hearing grossly Normal, Normocephalic, Normal Voice, Other ( r maxillary ecchymosis - reports work injury 3 weeks ago .) Respiratory: Yes: Chest Non-Tender, Lungs Clear, Normal Breath Sounds, No Respiratory Distress, No Accessory Muscle Use Neck: Yes: No masses,lesions,Nodules, Trachea in good position Cardiology: Yes: Regular Rhythm, Regular Rate, S1, S2 Abdominal: Yes: Non Tender, Soft, Hernia (bilateral inguinal) Back: Yes: Normal Inspection Musculoskeletal: Yes: Joint Stiffness (left knee , chronic) Extremities: Yes: Normal Capillary Refill, Normal Range of Motion, Non-Tender Neurological: Yes: Fully Oriented, Alert, Motor Strength 5/5, Normal Mood/Affect Integumentary: Yes: Warm - Diagnostic (1) Alcohol dependence Current Visit: Yes Status: Chronic Qualifiers: Substance use status: in remission Qualified Code(s): F10.21 - Alcohol dependence, in remission (2) Nicotine dependence Current Visit: Yes Status: Chronic Qualifiers: Nicotine product type: cigarettes Substance use status: uncomplicated Qualified Code(s): F17.210 - Nicotine dependence, cigarettes, uncomplicated Breathalyzer - Breathalyzer Breathalyzer: 0 Urine Drug Screen - Test Device Lot number: [id number] Expiration date: 01/29/21 - Control Is test valid?: Yes - Results Drug screen NEGATIVE: No Urine drug screen results: BZO-Benzodiazepines Inpatient Rehab Admission - Rehab Decision to Admit Inpatient rehab admission?: Yes - Initial Determination Are CD services needed?: Yes Free of communicable disease: Yes Not in need of hospitalization: Yes - Rehab Admission Criteria Previous failed treatment: No Poor recovery environment: No Comorbidities: No Lacks judgement: Yes Patient is meeting Inpatient Rehab admission criteria:: Yes"
[2019-06-18] MEDS ORDERED: MAGNESIUM CITRATE 300 ML BOTTLE PO PRN (16:37)
[2019-06-18] MEDS ORDERED: P-EPHED 60MG/TRIPROLIDI 2.5MG TABLET PO PRN (16:37)
[2019-06-18] MEDS ORDERED: MAGNESIUM HYDROX 2400MG/30ML ORAL SUSPENSION 30 ML CUP PO PRN (16:37)
[2019-06-18] MEDS ORDERED: MENTHOL/PHENOL 1 EACH UD MM PRN (16:37)
[2019-06-18] MEDS ORDERED: guaiFENesin 200 MG/10 ML 10 ML UNIT-DOSE CUPS PO PRN (16:37)
[2019-06-18] MEDS: NICOTINE 21 MG/24 HOURS TOPICAL PATCH TD SCH (17:57)
[2019-06-18] MEDS: MELATONIN 5 MG TABLETS PO PRN (21:09)
[2019-06-18] MEDS: THIAMINE HCL 100 MG TABLET (FP) PO SCH (21:09)
[2019-06-18 22:56] LABS: EPI CELLS 0.2 /HPF (0-5/HPF); HYALINE CASTS 1 /lpf (0-8); URINE APPEARANCE CLEAR; URINE BACTERIA 0 /hpf (NEGATIVE); URINE BILIRUBIN NEGATIVE (NEGATIVE); URINE COLOR YELLOW; URINE GLUCOSE (UA) NEGATIVE (NEGATIVE); URINE KETONE NEGATIVE (NEGATIVE); URINE LEUK ESTERASE NEGATIVE (NEGATIVE); URINE NITRITE NEGATIVE (NEGATIVE); URINE PROTEIN NEGATIVE (NEGATIVE); URINE RBC 4 /hpf (0-4); URINE UROBILINOGEN 0.2 mg/dL (0.2-1.0); URINE WBC 1 /hpf (0-5)
[2019-06-19] MEDS: NICOTINE 21 MG/24 HOURS TOPICAL PATCH TD SCH (09:59)
[2019-06-19] MEDS: PRENATAL VITAMINS W/ FOLIC ACID TABLET (FP) PO SCH (09:59)
[2019-06-19 11:29] LABS: HEMATOCRIT 42.1 % (35.4-49); HEMOGLOBIN 14.2 GM/dL (11.7-16.9); MCH 32.2 pg (25.7-33.7); MCHC 33.6 g/dl (32.0-35.9); MEAN CELL VOLUME 95.7 fl (80-96); MEAN PLT VOLUME 7.5 fl (7.5-11.1); PLATELET COUNT 231 K/MM3 (134-434); RDW 13.5 % (11.9-15.9); WHITE BLOOD COUNT 6.6 K/mm3 (4.0-10.0)
[2019-06-19 11:39] LABS: ALBUMIN 3.3 g/dl (3.4-5.0); BILIRUBIN,TOTAL 0.3 mg/dL (0.2-1); CALCIUM 9.1 mg/dL (8.5-10.1); CREATININE 0.9 mg/dL (0.55-1.3); POTASSIUM 4.2 mmol/L (3.5-5.1); TOT PROT 6.3 g/dl (6.4-8.2)
--- NOTE | 2019-06-19 19:38 | CONSULT ---
[facility] Psychiatric Consult - Data Date of interview: 06/19/19 Admission source: [facility] Identifying data: Another admission to [address] for this 44 y/o male seeking rehabilitative care to address substance use disorder ( cocaine, alcohol, cannabis, nicotine) co-morbid with Mood Disorder. Direct admission from the community. 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 Substance Abuse History: Discussed. Details in current [facility] report as follows : Smoking history: Current every day smoker. Have you smoked in the past 12 months: Yes. Aproximately how many cigarettes per day: 20. Cigars Per Day: 0. Hx Chewing Tobacco Use: No. Initiated information on smoking cessation: Yes. 'Breaking Loose' booklet given: 06/18/19. - Substances abused. Alcohol. Substance route: Oral. Frequency: Daily. Amount used: 3-6 packs beer, pint Barcardi. Age of first use: 15. Date of last use: 06/11/19. Crack. Substance route: Smoking. Frequency: Daily. Amount used: 1 pack/day. Age of first use: 15. Date of last use: 06/11/19. Cocaine. Substance route: Smoking. Frequency: Daily. Amount used: 1 pack/daily. Age of first use: 15. Date of last use: 06/11/19. Marijuana/Hashish. Substance route: Smoking. Frequency: 3-6 times per week. Amount used: 1 blunt/day. Age of first use: 15. Date of last use: 06/11/19. Heroin. Substance route: Inhalation. Frequency: 3-6 times per week. Amount used: 2 bag. Age of first use: 15. Date of last use: 06/11/19. Alprazolam (Xanax). Substance route: Oral. Frequency: 3-6 times per week. Amount used: 1 PILL. Age of first use: 15. Date of last use: 06/11/19 Medical History: Patient endorses good general health. Noted history of bilateral inguinal herniorraphy. Scar noted of right zygomatic region (result of a job-related injury at a [employer] shop a few days ago). Psychiatric History: No change in psychiatric history since encounter of 2018. Same narrative : patient denies history of psychiatric hospitalizations or suicide attempts. Mr Raghavendra reports persistent dysphoria and chronic insomnia attributable, as per self-report, to personal misfortunes (separation from his two daughters, estrangement from now to his best friend, being on parole after serving three years in long term, homelessness, chronic unemployment, financial constraints, illness of biological mother). Patient has also indicated his chronic non-adherence to referrals after discharge from substance use treatment centers. " I never keep my appointments with doctors outside. ". No prior trial of psychotropic medications. Patient reports that he saw a psychiatrist at [facility] who prescribed him buspirone. Physical/Sexual Abuse/Trauma History: No reported history of abuse. Refer to Psychiatric history section for details on stressors. Additional Comment: Urine drug screen results: BZO-Benzodiazepines. Noted. Mental Status Exam - Mental Status Exam Alert and Oriented to: Time, Place, Person Cognitive Function: Good Patient Appearance: Well Groomed (right facial scar (new feature)) Mood: Hopeful, Euthymic Affect: Appropriate, Normal Range Patient Behavior: Appropriate, Cooperative Speech Pattern: Clear, Appropriate Voice Loudness: Normal Thought Process: Intact, Goal Oriented Thought Disorder: Not Present Hallucinations: Denies Suicidal Ideation: Denies Homicidal Ideation: Denies Insight/Judgement: Fair Sleep: Poorly, Difficulty falling asleep Appetite: Good Muscle strength/Tone: Normal Gait/Station: Normal Psychiatric Findings - Problem List ([place] 1, 2,3) (1) Alcohol dependence Current Visit: Yes Status: Chronic Qualifiers: Substance use status: in remission Qualified Code(s): F10.21 - Alcohol dependence, in remission (2) Benzodiazepine dependence Current Visit: Yes Status: Chronic (3) Opioid abuse Current Visit: Yes Status: Chronic (4) Nicotine dependence Current Visit: Yes Status: Chronic Qualifiers: Nicotine product type: cigarettes Substance use status: uncomplicated Qualified Code(s): F17.210 - Nicotine dependence, cigarettes, uncomplicated (5) Cocaine dependence Current Visit: Yes Status: Chronic Qualifiers: Substance use status: uncomplicated Qualified Code(s): F14.20 - Cocaine dependence, uncomplicated (6) Cannabis dependence Current Visit: Yes Status: Chronic (7) Substance induced mood disorder Current Visit: Yes Status: Chronic (8) Insomnia Current Visit: Yes Status: Chronic Qualifiers: Insomnia type: unspecified Qualified Code(s): G47.00 - Insomnia, unspecified (9) Non-compliance Current Visit: Yes Status: Chronic - Initial Treatment Plan Initial Treatment Plan: Psychoeducation. Sleep hygiene. Support. AA/NA meetings. MAT services offered. Resumed (patient's request ) : seroquel 150 mg po hs + buspar 5 mg po tid. Side effects/benefits of both drugs are discussed with the patient. He is in agreement with this plan of care. Mr Mabry gave verbal consent to Observation.
[2019-06-19] MEDS: THIAMINE HCL 100 MG TABLET (FP) PO SCH (21:39)
[2019-06-19] MEDS: busPIRone HCL 5 MG TABLET PO SCH (21:40)
[2019-06-19] MEDS: QUEtiapine FUMARATE 50 MG TABLET PO SCH (21:40)
[2019-06-19] MEDS: MELATONIN 5 MG TABLETS PO PRN (21:40)
[2019-06-19] MEDS: hydrOXYzine PAMOATE 25 MG CAPSULE (FP) PO PRN (21:40)
[2019-06-20] MEDS: busPIRone HCL 5 MG TABLET PO SCH ×3 (06:56→21:07)
[2019-06-20] MEDS: NICOTINE 21 MG/24 HOURS TOPICAL PATCH TD SCH (09:23)
[2019-06-20] MEDS: PRENATAL VITAMINS W/ FOLIC ACID TABLET (FP) PO SCH (09:23)
[2019-06-20] MEDS: IBUPROFEN 400 MG TABLET (FP) PO PRN (13:09)
[2019-06-20] MEDS: QUEtiapine FUMARATE 50 MG TABLET PO SCH (21:07)
[2019-06-20] MEDS: THIAMINE HCL 100 MG TABLET (FP) PO SCH (21:07)
[2019-06-20] MEDS: MELATONIN 5 MG TABLETS PO PRN (21:07)
[2019-06-21] MEDS: busPIRone HCL 5 MG TABLET PO SCH ×3 (05:58→21:41)
[2019-06-21] MEDS: NICOTINE 21 MG/24 HOURS TOPICAL PATCH TD SCH (10:09)
[2019-06-21] MEDS: MULTIVITAMINS (DAILY MVI) TABLET (FP) PO SCH (11:29)
[2019-06-21] MEDS: METHOCARBAMOL 500 MG TABLET PO SCH ×2 (11:29→21:41)
[2019-06-21] MEDS: MINERAL OIL/PETROLAT/WATER TOPICAL CREAM 113 GM JAR TP SCH ×2 (11:30→21:41)
[2019-06-21] MEDS: hydrOXYzine PAMOATE 25 MG CAPSULE (FP) PO PRN (16:49)
[2019-06-21] MEDS: MELATONIN 5 MG TABLETS PO PRN (21:41)
[2019-06-21] MEDS: THIAMINE HCL 100 MG TABLET (FP) PO SCH (21:41)
[2019-06-21] MEDS: QUEtiapine FUMARATE 50 MG TABLET PO SCH (21:41)
[2019-06-22] MEDS: busPIRone HCL 5 MG TABLET PO SCH ×3 (06:27→21:09)
[2019-06-22] MEDS: MINERAL OIL/PETROLAT/WATER TOPICAL CREAM 113 GM JAR TP SCH ×2 (09:58→21:09)
[2019-06-22] MEDS: METHOCARBAMOL 500 MG TABLET PO SCH ×2 (09:58→21:09)
[2019-06-22] MEDS: MULTIVITAMINS (DAILY MVI) TABLET (FP) PO SCH (09:58)
[2019-06-22] MEDS: NICOTINE 21 MG/24 HOURS TOPICAL PATCH TD SCH (09:58)
[2019-06-22] MEDS: hydrOXYzine PAMOATE 25 MG CAPSULE (FP) PO PRN ×2 (09:58→15:16)
[2019-06-22] MEDS: MELATONIN 5 MG TABLETS PO PRN (21:09)
[2019-06-22] MEDS: THIAMINE HCL 100 MG TABLET (FP) PO SCH (21:09)
[2019-06-22] MEDS: QUEtiapine FUMARATE 50 MG TABLET PO SCH (21:09)
[2019-06-23] MEDS: busPIRone HCL 5 MG TABLET PO SCH ×3 (05:43→21:38)
[2019-06-23] MEDS: NICOTINE 21 MG/24 HOURS TOPICAL PATCH TD SCH (09:45)
[2019-06-23] MEDS: MINERAL OIL/PETROLAT/WATER TOPICAL CREAM 113 GM JAR TP SCH ×2 (09:45→21:40)
[2019-06-23] MEDS: METHOCARBAMOL 500 MG TABLET PO SCH ×2 (09:45→21:38)
[2019-06-23] MEDS: hydrOXYzine PAMOATE 25 MG CAPSULE (FP) PO PRN (09:46)
[2019-06-23] MEDS: MULTIVITAMINS (DAILY MVI) TABLET (FP) PO SCH (10:20)
[2019-06-23] MEDS ORDERED: NICOTINE POLACRILEX 2 MG GUM BUC PRN (14:17)
[2019-06-23] MEDS: THIAMINE HCL 100 MG TABLET (FP) PO SCH (21:38)
[2019-06-23] MEDS: QUEtiapine FUMARATE 50 MG TABLET PO SCH (21:38)
[2019-06-23] MEDS: MELATONIN 5 MG TABLETS PO PRN (21:39)
[2019-06-24] MEDS: busPIRone HCL 5 MG TABLET PO SCH ×3 (06:13→21:03)
[2019-06-24] MEDS: hydrOXYzine PAMOATE 25 MG CAPSULE (FP) PO PRN (09:55)
[2019-06-24] MEDS: METHOCARBAMOL 500 MG TABLET PO SCH ×2 (09:55→21:03)
[2019-06-24] MEDS: MULTIVITAMINS (DAILY MVI) TABLET (FP) PO SCH (09:56)
[2019-06-24] MEDS: NICOTINE 14 MG/24 HOURS TOPICAL PATCH TD SCH (09:56)
[2019-06-24] MEDS: MINERAL OIL/PETROLAT/WATER TOPICAL CREAM 113 GM JAR TP SCH ×2 (09:56→21:03)
[2019-06-24] MEDS: NICOTINE 21 MG/24 HOURS TOPICAL PATCH TD SCH (09:56)
[2019-06-24] MEDS: QUEtiapine FUMARATE 50 MG TABLET PO SCH (21:03)
[2019-06-24] MEDS: THIAMINE HCL 100 MG TABLET (FP) PO SCH (21:03)
[2019-06-24] MEDS: MELATONIN 5 MG TABLETS PO PRN (21:03)
[2019-06-25] MEDS: busPIRone HCL 5 MG TABLET PO SCH ×3 (06:17→21:12)
[2019-06-25] MEDS: MINERAL OIL/PETROLAT/WATER TOPICAL CREAM 113 GM JAR TP SCH ×2 (10:12→22:29)
[2019-06-25] MEDS: NICOTINE 21 MG/24 HOURS TOPICAL PATCH TD SCH (10:12)
[2019-06-25] MEDS: NICOTINE 14 MG/24 HOURS TOPICAL PATCH TD SCH (10:13)
[2019-06-25] MEDS: hydrOXYzine PAMOATE 25 MG CAPSULE (FP) PO PRN ×2 (10:13→17:23)
[2019-06-25] MEDS: MULTIVITAMINS (DAILY MVI) TABLET (FP) PO SCH (10:14)
[2019-06-25] MEDS: METHOCARBAMOL 500 MG TABLET PO SCH ×2 (10:14→21:12)
--- NOTE | 2019-06-25 10:24 | PN ---
Psychiatric Progress Note Vital Signs: Vital Signs Period Temp Pulse Resp BP Sys/Milian Pulse Ox Last 24 Hr 97.5 F 68 18-18 103/66 Date of Session: 06/25/19 Chief Complaint:: " Dora is doing nothing for my anxiety." HPI: Day 7 of rehabilitation treatment. Uneventful hospital course. Patient has complained of persistent anxiety symptoms and has requested a second meeting with psychiatric mental hygiene consultant to discuss medications. Progress remains unremarkable otherwise (no report of acting out behavior, adherence to rules + regulations). ROS: Unremarkable. Patient is observed as well groomed, ambulatory and sociable. Cognitively intact. Steady gait. Current Medications: Active Medications Generic Name Dose Route Start Last Admin Trade Name Freq PRN Reason Stop Dose Admin Acetaminophen 650 mg 06/18/19 16:37 Tylenol - PO Q4H PRN FEVER Al Hydroxide/Mg Hydroxide 30 ml 06/18/19 16:37 Mylanta Oral Suspension - PO Q6H PRN DYSPEPSIA Buspirone HCl 5 mg 06/19/19 22:00 06/25/19 06:17 Buspar - PO 5 mg TID CONCETTA Administration Eucalyptus/Menthol/Phenol/Sorbitol 1 each 06/18/19 16:37 Cepastat Lozenge - MM Q4H PRN SORE THROAT Guaifenesin 10 ml 06/18/19 16:37 Robitussin - PO Q6H PRN COUGH Hydroxyzine Pamoate 25 mg 06/18/19 16:37 06/25/19 10:13 Vistaril - PO 25 mg Q4H PRN Administration AGITATION Ibuprofen 400 mg 06/18/19 16:37 06/20/19 13:09 Motrin - PO 400 mg Q6H PRN Administration Pain level 4-6 Magnesium Citrate 300 ml 06/18/19 16:37 Citroma - PO Q48H PRN CONSTIPATION Magnesium Hydroxide 30 ml 06/18/19 16:37 Milk Of Magnesia - PO DAILY PRN CONSTIPATION Melatonin 5 mg 06/18/19 22:00 06/24/19 21:03 Melatonin PO 5 mg HS PRN Administration INSOMNIA Methocarbamol 500 mg 06/21/19 10:00 06/25/19 10:14 Robaxin - PO 500 mg BID CONCETTA Administration Multi-Ingredient Lotion 1 applic 06/21/19 10:00 06/25/19 10:12 Eucerin (Small Jar) - TP Not Given BID CONCETTA Multivitamins/Minerals/Vitamin C 1 tab 06/21/19 10:00 06/25/19 10:14 Tab-A-Vit - PO 1 tab DAILY CONCETTA Administration Nicotine 21 mg 06/18/19 18:00 06/25/19 10:12 Nicoderm Patch - TD Not Given DAILY CONCETTA Nicotine 14 mg 06/24/19 10:00 06/25/19 10:13 Nicoderm Patch - TD 14 mg DAILY CONCETTA Administration Nicotine Polacrilex 2 mg 06/23/19 14:17 Nicorette Gum - BUC Q2H PRN NICOTINE REPLACEMENT RX Pseudoephedrine/Triprolidine 1 combo 06/18/19 16:37 Actifed - PO TID PRN NASAL CONGESTION Quetiapine Fumarate 150 mg 06/19/19 22:00 06/24/19 21:03 Seroquel - PO 150 mg HS CONCETTA Administration Thiamine HCl 100 mg 06/18/19 22:00 06/24/19 21:03 Vitamin B1 - PO 100 mg HS CONCETTA Administration Medication(s) Change(s): Yes. Wellburtin XL 150 mg po daily is added to the regimen. Seroquel is raised to 100 mg po am + 150 mg po hs. Side effects/ benefits of wellbutrin, seroquel and buspirone are re-discussed with the patient. Informed of risk of seizures (wellbutrin), metabolic syndrome, oversedation, abnormal involuntary movements (seroquel) and educated about the characteristics of buspirone (slow onset of action in particular). Mr Mabry agrees with this intervention. Gave his verbal consent to MD. Current Side Effect: No Lab tests ordered: No Lab tests reviewed: Yes Provider note:: Chart reviewed. Psychiatric re-consultation is conducted with medical students in attendance (patient gave verbal permission to MD). Medications reviewed. Met with the patient. Mr Mabry reports that he has been " reading " about his condition and taken personal notes (seen during interview) pertinent to symptoms and course of affective illnesses. Patient continues to endorses feelings of shame, sadness, guilt over his drug use. He expresses motivation for sobriety but admits to experience transient anxiety symptoms ( apprehension about social issues such as housing, employment, bills). Mr Mabry vehemently denies suicidal or homicidal ideation, intent or plan. He is agreeable with current psychopharmacotherapy. Noted as receptive to teaching ( talk-therapy) and support. Patient is adherent to medications. Attends groups. Maintains adequate personal hygiene. Mental status is at baseline. See MSE report for details. Mr Mabry is not a danger to self or others at time of this examination. Total face to face time:: 80 Mental Status Exam - Mental Status Exam Alert and Oriented to: Time, Place, Person Cognitive Function: Good Patient Appearance: Well Groomed Mood: Anxious, Hopeful Affect: Mood Congruent, Constricted Patient Behavior: Appropriate, Cooperative Speech Pattern: Clear, Appropriate Voice Loudness: Normal Thought Process: Intact, Goal Oriented Thought Disorder: Not Present Hallucinations: Denies Suicidal Ideation: Denies Homicidal Ideation: Denies Insight/Judgement: Fair Sleep: Well Appetite: Good Muscle strength/Tone: Normal Gait/Station: Normal Psychiatric Treatment Plan - Problem List (1) Depressive disorder Current Visit: Yes Comment: . (2) Alcohol dependence Current Visit: Yes Qualifiers: Substance use status: in remission Qualified Code(s): F10.21 - Alcohol dependence, in remission Comment: . (3) Benzodiazepine dependence Current Visit: Yes Comment: . (4) Opioid abuse Current Visit: Yes Comment: . (5) Nicotine dependence Current Visit: Yes Qualifiers: Nicotine product type: cigarettes Substance use status: uncomplicated Qualified Code(s): F17.210 - Nicotine dependence, cigarettes, uncomplicated Comment: . (6) Cocaine dependence Current Visit: Yes Qualifiers: Substance use status: uncomplicated Qualified Code(s): F14.20 - Cocaine dependence, uncomplicated Comment: . (7) Cannabis dependence Current Visit: Yes (8) Substance induced mood disorder Current Visit: Yes Comment: . (9) Insomnia Current Visit: Yes Qualifiers: Insomnia type: unspecified Qualified Code(s): G47.00 - Insomnia, unspecified Comment: .
[2019-06-25] MEDS: THIAMINE HCL 100 MG TABLET (FP) PO SCH (21:12)
[2019-06-25] MEDS: QUEtiapine FUMARATE 50 MG TABLET PO SCH (21:12)
[2019-06-26] MEDS: busPIRone HCL 5 MG TABLET PO SCH ×3 (06:10→21:07)
[2019-06-26] MEDS ORDERED: PT OWN MED DRAWER 7, Y5N ONE (09:12)
[2019-06-26] MEDS: MINERAL OIL/PETROLAT/WATER TOPICAL CREAM 113 GM JAR TP SCH ×2 (10:07→21:07)
[2019-06-26] MEDS: QUEtiapine FUMARATE 100 MG TABLET (FP) PO SCH (10:07)
[2019-06-26] MEDS: NICOTINE 14 MG/24 HOURS TOPICAL PATCH TD SCH (10:07)
[2019-06-26] MEDS: MULTIVITAMINS (DAILY MVI) TABLET (FP) PO SCH (10:07)
[2019-06-26] MEDS: METHOCARBAMOL 500 MG TABLET PO SCH ×2 (10:07→21:07)
[2019-06-26] MEDS: THIAMINE HCL 100 MG TABLET (FP) PO SCH (21:07)
[2019-06-26] MEDS: QUEtiapine FUMARATE 50 MG TABLET PO SCH (21:07)
[2019-06-27] MEDS: busPIRone HCL 5 MG TABLET PO SCH ×3 (06:24→22:01)
[2019-06-27] MEDS: METHOCARBAMOL 500 MG TABLET PO SCH ×2 (09:49→22:01)
[2019-06-27] MEDS: MULTIVITAMINS (DAILY MVI) TABLET (FP) PO SCH (09:49)
[2019-06-27] MEDS: QUEtiapine FUMARATE 100 MG TABLET (FP) PO SCH (09:50)
[2019-06-27] MEDS: hydrOXYzine PAMOATE 25 MG CAPSULE (FP) PO PRN ×2 (09:50→18:38)
[2019-06-27] MEDS: NICOTINE 14 MG/24 HOURS TOPICAL PATCH TD SCH (10:27)
[2019-06-27] MEDS: MINERAL OIL/PETROLAT/WATER TOPICAL CREAM 113 GM JAR TP SCH ×2 (10:27→22:01)
[2019-06-27] MEDS: diphenhydrAMINE HCL 25 MG CAPSULE (FP) PO PRN (15:34)
[2019-06-27] MEDS: ACETAMINOPHEN 325 MG TABLET (FP) PO PRN (18:38)
[2019-06-27] MEDS: QUEtiapine FUMARATE 50 MG TABLET PO SCH (22:01)
[2019-06-27] MEDS: THIAMINE HCL 100 MG TABLET (FP) PO SCH (22:01)
[2019-06-27] MEDS: IBUPROFEN 400 MG TABLET (FP) PO PRN (22:03)
[2019-06-28] MEDS: diphenhydrAMINE HCL 25 MG CAPSULE (FP) PO PRN ×2 (06:15→21:38)
[2019-06-28] MEDS: busPIRone HCL 5 MG TABLET PO SCH (06:15)
[2019-06-28] MEDS: MULTIVITAMINS (DAILY MVI) TABLET (FP) PO SCH (09:29)
[2019-06-28] MEDS: NICOTINE 14 MG/24 HOURS TOPICAL PATCH TD SCH (09:30)
[2019-06-28] MEDS: MINERAL OIL/PETROLAT/WATER TOPICAL CREAM 113 GM JAR TP SCH ×2 (09:30→21:37)
[2019-06-28] MEDS: METHOCARBAMOL 500 MG TABLET PO SCH ×2 (09:30→21:37)
[2019-06-28] MEDS: QUEtiapine FUMARATE 100 MG TABLET (FP) PO SCH (09:31)
[2019-06-28] MEDS ORDERED: diphenhydrAMINE HCL 25 MG CAPSULE (FP) PO ONE (09:44)
--- NOTE | 2019-06-28 10:26 | PN ---
S Progress Note Note: Patient treated for allergic reaction to mayonnaise. Continues to present with redness to chest area and c/o itching. Patient also states he has h/o inguinal hernia and concerned reaction will effect hernia. ROS: denies chest pain, swelling of tongue, abdominal/inguinal pain and sob PE; alert and oriented x 3 skin: warm, +redness to torso, no hives present +perrla, eoms intact bl oral mucosa pink and moist, no swelling of tongue/lips car s1s2 resp cta bl, no wheezes or rales gi soft, nt, nd ext full rom, no swelling A/P: treated with IM benadry last night Benadryl 25mg given as per prn order at 6am-will add another 25mg po x one due to continued redness and itching patient explained that reaction should not effect hernia but if sx of discomfort or swelling occurs to notify RN/DRAMATIC CRITIC monitor clinically
[2019-06-28] MEDS ORDERED: predniSONE 20 MG TABLET (UD) PO ONE (13:44)
[2019-06-28] MEDS: ACETAMINOPHEN 325 MG TABLET (FP) PO PRN (16:30)
[2019-06-28] MEDS: MELATONIN 5 MG TABLETS PO PRN (21:37)
[2019-06-28] MEDS: THIAMINE HCL 100 MG TABLET (FP) PO SCH (21:37)
[2019-06-28] MEDS: QUEtiapine FUMARATE 50 MG TABLET PO SCH (21:37)
[2019-06-29] MEDS: diphenhydrAMINE HCL 25 MG CAPSULE (FP) PO PRN (07:23)
[2019-06-29] MEDS: QUEtiapine FUMARATE 100 MG TABLET (FP) PO SCH (09:47)
[2019-06-29] MEDS: MULTIVITAMINS (DAILY MVI) TABLET (FP) PO SCH (09:47)
[2019-06-29] MEDS: METHOCARBAMOL 500 MG TABLET PO SCH ×2 (09:47→21:13)
[2019-06-29] MEDS: MINERAL OIL/PETROLAT/WATER TOPICAL CREAM 113 GM JAR TP SCH ×2 (09:49→21:16)
[2019-06-29] MEDS ORDERED: predniSONE 10 MG TABLET (UD) PO SCH (10:00)
[2019-06-29] MEDS: NICOTINE 14 MG/24 HOURS TOPICAL PATCH TD SCH (10:15)
[2019-06-29] MEDS: QUEtiapine FUMARATE 50 MG TABLET PO SCH (21:13)
[2019-06-29] MEDS: MELATONIN 5 MG TABLETS PO PRN (21:13)
[2019-06-29] MEDS: THIAMINE HCL 100 MG TABLET (FP) PO SCH (21:13)
[2019-06-29] MEDS: ACETAMINOPHEN 325 MG TABLET (FP) PO PRN (21:14)
[2019-06-29] MEDS: MAG HYDROX/AL HYDROX/SIMETH 30 ML UNIT-DOSE CUP PO PRN (21:14)
[2019-06-30] MEDS ORDERED: PT OWN MED DRAWER 7, Y5N ONE ×2 (09:06→10:00)
[2019-06-30] MEDS: QUEtiapine FUMARATE 100 MG TABLET (FP) PO SCH (09:58)
[2019-06-30] MEDS: METHOCARBAMOL 500 MG TABLET PO SCH ×2 (09:58→21:33)
[2019-06-30] MEDS: diphenhydrAMINE HCL 25 MG CAPSULE (FP) PO PRN ×2 (09:58→16:57)
[2019-06-30] MEDS: MINERAL OIL/PETROLAT/WATER TOPICAL CREAM 113 GM JAR TP SCH ×2 (09:59→21:33)
[2019-06-30] MEDS: NICOTINE 14 MG/24 HOURS TOPICAL PATCH TD SCH (09:59)
[2019-06-30] MEDS: MULTIVITAMINS (DAILY MVI) TABLET (FP) PO SCH (09:59)
[2019-06-30] MEDS ORDERED: predniSONE 20 MG TABLET (UD) PO SCH (10:00)
[2019-06-30] MEDS: MAG HYDROX/AL HYDROX/SIMETH 30 ML UNIT-DOSE CUP PO PRN (16:57)
--- NOTE | 2019-06-30 18:02 | PN ---
[facility] Progress Note Note: Psychiatry Attending's note : Came to assess this patient. In response to third request for psychiatric consult. Reason offered : adjustment of medications. Chart reviewed. Met with the patient. Mr Mabry is observed as neatly groomed. Maintains his living quarters tidy. He reports adequate sleep, good energy level and improved quality of mood. However, the patient reports concern about transient irritability + poor frustration tolerance. " Doctor, I get angry for no apparent reason. I am afraid that I may have bipolar. I read about it." Mr Mabry is seen carrying a folder full of notes taken from medical articles about psychiatric disorders. Patient is reassured. He is advised against the temptation to make his own diagnoses after reading medical materials. Mental status remains unremarkable. Patient is cognitively sound. Ambulatory. Euthymic. Well controlled as per examination. Not suicidal or homicidal. Not psychotic. Patient reports no adverse effects from the medications. Baseline functioning. Feels fine. Noted recent occurrence of skin rash (abrupt onset after ingestion of self- concocted mixture of mustard/mayonnaise, according to the patient). Rash is receding with treatment (antihistaminic, steroids). Medical notes appreciated. Rashid-Santana has been ruled out by medical team. Will continue wellbutrin XL 150 mg po daily + seroquel 100 mg po am and 150 mg po hs. Addition of valproate is suggested to patient. Consent pending.
[2019-06-30] MEDS: MELATONIN 5 MG TABLETS PO PRN (21:32)
[2019-06-30] MEDS: QUEtiapine FUMARATE 50 MG TABLET PO SCH (21:32)
[2019-06-30] MEDS: THIAMINE HCL 100 MG TABLET (FP) PO SCH (21:32)
[2019-07-01] MEDS: hydrOXYzine PAMOATE 25 MG CAPSULE (FP) PO PRN (06:16)
[2019-07-01] MEDS ORDERED: PT OWN MED DRAWER 7, Y5N ONE (09:27)
[2019-07-01] MEDS ORDERED: predniSONE 10 MG TABLET (UD) PO SCH (10:00)
[2019-07-01] MEDS: METHOCARBAMOL 500 MG TABLET PO SCH ×2 (10:40→21:12)
[2019-07-01] MEDS: MULTIVITAMINS (DAILY MVI) TABLET (FP) PO SCH (10:40)
[2019-07-01] MEDS: QUEtiapine FUMARATE 100 MG TABLET (FP) PO SCH (10:40)
[2019-07-01] MEDS: NICOTINE 14 MG/24 HOURS TOPICAL PATCH TD SCH (10:41)
[2019-07-01] MEDS: MINERAL OIL/PETROLAT/WATER TOPICAL CREAM 113 GM JAR TP SCH ×2 (10:41→21:11)
[2019-07-01] MEDS: MAG HYDROX/AL HYDROX/SIMETH 30 ML UNIT-DOSE CUP PO PRN (15:15)
[2019-07-01] MEDS: MELATONIN 5 MG TABLETS PO PRN (21:11)
[2019-07-01] MEDS: QUEtiapine FUMARATE 50 MG TABLET PO SCH (21:11)
[2019-07-01] MEDS: THIAMINE HCL 100 MG TABLET (FP) PO SCH (21:12)
[2019-07-02] MEDS ORDERED: PT OWN MED DRAWER 7, Y5N ONE (08:56)
[2019-07-02] MEDS: MULTIVITAMINS (DAILY MVI) TABLET (FP) PO SCH (09:39)
[2019-07-02] MEDS: QUEtiapine FUMARATE 100 MG TABLET (FP) PO SCH (09:40)
[2019-07-02] MEDS: METHOCARBAMOL 500 MG TABLET PO SCH ×2 (09:40→21:38)
[2019-07-02] MEDS: NICOTINE 14 MG/24 HOURS TOPICAL PATCH TD SCH (09:40)
[2019-07-02] MEDS: MINERAL OIL/PETROLAT/WATER TOPICAL CREAM 113 GM JAR TP SCH ×2 (09:40→21:38)
[2019-07-02] MEDS: MELATONIN 5 MG TABLETS PO PRN (21:38)
[2019-07-02] MEDS: QUEtiapine FUMARATE 50 MG TABLET PO SCH (21:38)
[2019-07-02] MEDS: THIAMINE HCL 100 MG TABLET (FP) PO SCH (21:38)
[2019-07-03] MEDS ORDERED: PT OWN MED DRAWER 7, Y5N ONE ×2 (09:24→18:49)
[2019-07-03] MEDS: METHOCARBAMOL 500 MG TABLET PO SCH ×2 (10:03→21:03)
[2019-07-03] MEDS: QUEtiapine FUMARATE 100 MG TABLET (FP) PO SCH (10:03)
[2019-07-03] MEDS: MULTIVITAMINS (DAILY MVI) TABLET (FP) PO SCH (10:03)
[2019-07-03] MEDS: NICOTINE 14 MG/24 HOURS TOPICAL PATCH TD SCH (10:04)
[2019-07-03] MEDS: MINERAL OIL/PETROLAT/WATER TOPICAL CREAM 113 GM JAR TP SCH ×2 (10:04→21:04)
[2019-07-03] MEDS: MAG HYDROX/AL HYDROX/SIMETH 30 ML UNIT-DOSE CUP PO PRN (15:53)
[2019-07-03] MEDS: QUEtiapine FUMARATE 50 MG TABLET PO SCH (21:03)
[2019-07-03] MEDS: THIAMINE HCL 100 MG TABLET (FP) PO SCH (21:03)
[2019-07-03] MEDS: MELATONIN 5 MG TABLETS PO PRN (21:03)
[2019-07-04] MEDS: MINERAL OIL/PETROLAT/WATER TOPICAL CREAM 113 GM JAR TP SCH ×2 (10:02→21:41)
[2019-07-04] MEDS: QUEtiapine FUMARATE 100 MG TABLET (FP) PO SCH (10:02)
[2019-07-04] MEDS: NICOTINE 14 MG/24 HOURS TOPICAL PATCH TD SCH (10:02)
[2019-07-04] MEDS: MULTIVITAMINS (DAILY MVI) TABLET (FP) PO SCH (10:02)
[2019-07-04] MEDS: METHOCARBAMOL 500 MG TABLET PO SCH ×2 (10:04→21:41)
[2019-07-04] MEDS: QUEtiapine FUMARATE 50 MG TABLET PO SCH (21:40)
[2019-07-04] MEDS: THIAMINE HCL 100 MG TABLET (FP) PO SCH (21:40)
[2019-07-04] MEDS: MELATONIN 5 MG TABLETS PO PRN (21:41)
[2019-07-05] MEDS: NICOTINE 14 MG/24 HOURS TOPICAL PATCH TD SCH (09:56)
[2019-07-05] MEDS: MULTIVITAMINS (DAILY MVI) TABLET (FP) PO SCH (09:59)
[2019-07-05] MEDS: METHOCARBAMOL 500 MG TABLET PO SCH ×2 (09:59→21:17)
[2019-07-05] MEDS: MINERAL OIL/PETROLAT/WATER TOPICAL CREAM 113 GM JAR TP SCH ×2 (10:00→21:17)
[2019-07-05] MEDS: QUEtiapine FUMARATE 100 MG TABLET (FP) PO SCH (10:02)
[2019-07-05] MEDS: MELATONIN 5 MG TABLETS PO PRN (21:17)
[2019-07-05] MEDS: THIAMINE HCL 100 MG TABLET (FP) PO SCH (21:17)
[2019-07-05] MEDS: QUEtiapine FUMARATE 50 MG TABLET PO SCH (21:19)
[2019-07-06] MEDS: METHOCARBAMOL 500 MG TABLET PO SCH ×2 (10:21→21:31)
[2019-07-06] MEDS: QUEtiapine FUMARATE 100 MG TABLET (FP) PO SCH (10:21)
[2019-07-06] MEDS: MINERAL OIL/PETROLAT/WATER TOPICAL CREAM 113 GM JAR TP SCH ×2 (10:22→21:32)
[2019-07-06] MEDS: MULTIVITAMINS (DAILY MVI) TABLET (FP) PO SCH (10:22)
[2019-07-06] MEDS: NICOTINE 14 MG/24 HOURS TOPICAL PATCH TD SCH (10:22)
--- NOTE | 2019-07-06 10:28 | DS ---
[facility] Rehab Discharge Summary - [facility] Rehab Discharge Summary Admission Date: 06/18/19 Discharge Date: 07/07/19 - History Present History: Alcohol dependence Additional Comments: Pt is a 44 y/o male admitted to rehab and discharging on 07/07/19. Pertinent Past History: Inguinal Hernia,bilateral Depressive Disorder - Discharge Physical Exam Vital Signs: Vital Signs Temperature 97.6 F 07/06/19 07:28 Pulse Rate 72 07/06/19 07:28 Respiratory Rate 18 07/06/19 07:28 Blood Pressure 110/64 07/06/19 07:28 O2 Sat by Pulse Oximetry (%) Alert o x 3 nad oob ambulating with steady gait cardiac:s1 s2, rrr lungs:cta,franny. abdomen:+bs,nt,nd, extremities/skin;no edema,full rom,skin intact Pertinent Admission Physical Exam Findings: Laboratory Tests 06/18/19 06/19/19 06/19/19 20:59 10:20 10:20 WBC 6.6 RBC 4.40 Hgb 14.2 Hct 42.1 MCV 95.7 MCH 32.2 MCHC 33.6 RDW 13.5 Plt Count 231 MPV 7.5 Sodium 141 Potassium 4.2 Chloride 103 Carbon Dioxide 31 Anion Gap 7 L BUN 14.0 Creatinine 0.9 Est GFR (CKD-EPI)AfAm 119.13 Est GFR (CKD-EPI)NonAf 102.79 Random Glucose 98 Calcium 9.1 Total Bilirubin 0.3 AST 23 ALT 33 Alkaline Phosphatase 80 Total Protein 6.3 L Albumin 3.3 L Urine Color Yellow Urine Appearance Clear Urine pH 6.0 Ur Specific [place] 1.021 Urine Protein Negative Urine Glucose (UA) Negative Urine Ketones Negative Urine Blood Trace Urine Nitrite Negative Urine Bilirubin Negative Urine Urobilinogen 0.2 Ur Leukocyte Esterase Negative Urine WBC (Auto) 1 Urine RBC (Auto) 4 Urine Casts (Auto) 1 U Epithel Cells (Auto) 0.2 Urine Bacteria (Auto) 0 RPR Titer 06/19/19 10:20 WBC RBC Hgb Hct MCV MCH MCHC RDW Plt Count MPV Sodium Potassium Chloride Carbon Dioxide Anion Gap BUN Creatinine Est GFR (CKD-EPI)AfAm Est GFR (CKD-EPI)NonAf Random Glucose Calcium Total Bilirubin AST ALT Alkaline Phosphatase Total Protein Albumin Urine Color Urine Appearance Urine pH Ur Specific [place] Urine Protein Urine Glucose (UA) Urine Ketones Urine Blood Urine Nitrite Urine Bilirubin Urine Urobilinogen Ur Leukocyte Esterase Urine WBC (Auto) Urine RBC (Auto) Urine Casts (Auto) U Epithel Cells (Auto) Urine Bacteria (Auto) RPR Titer Nonreactive - Treatment Discharge Condition: Discharge condition good Hospital Course: Rehabilitated safely and responded well CD aftercare referral accepted. - Medication Discharge Medications: Ambulatory Orders Bupropion HCl [Wellbutrin Xl -] 150 mg PO DAILY #30 tab.sr.24h 07/06/19 Quetiapine Fumarate [Seroquel -] 50 mg PO DAILY #30 tablet 07/06/19 Quetiapine Fumarate [Seroquel -] 200 mg PO HS #30 tab 07/06/19 - Medication-Assisted Treatment (MAT) Medication-Assisted Treatment (MAT): No - Discharge Instructions Diet, activity, other medical instructions: Diet:regular Activity: oob ad olesya Other medical instructions:follow up with CD aftercare recommendation at [facility] on [address] [place], [place]. follow up with primary care provider for medical management within 1-2 weeks after discharge. - Diagnosis (1) Alcohol dependence Status: Chronic Qualifiers: Substance use status: in remission Qualified Code(s): F10.21 - Alcohol dependence, in remission (2) Benzodiazepine dependence Status: Chronic (3) Cannabis dependence Status: Chronic (4) Cocaine dependence Status: Chronic Qualifiers: Substance use status: uncomplicated Qualified Code(s): F14.20 - Cocaine dependence, uncomplicated (5) Nicotine dependence Status: Chronic Qualifiers: Nicotine product type: cigarettes Substance use status: uncomplicated Qualified Code(s): F17.210 - Nicotine dependence, cigarettes, uncomplicated (6) Inguinal hernia, bilateral Status: Resolved - Follow-up Referral Minutes to complete discharge: 20 - AMA Did Patient Leave Against Medical Advice: No
--- NOTE | 2019-07-06 19:56 | PN ---
Psychiatric Progress Note Vital Signs: Vital Signs Period Temp Pulse Resp BP Sys/Milian Pulse Ox Last 24 Hr 97.6 F 72 18-18 110/64 Date of Session: 07/06/19 Chief Complaint:: " I am doing so much better. Will I get scripts for my medications ? " HPI: No new complaints. Patient is nearing completion of his rehabilitation program . Mr Mabry is scheduled for discharge on 07/07/19. He requested to speak with this screenplay writer to ensure that he will get his prescriptions sent to [facility] (on the premises). Unremarkable hospital course. ROS: Unremarkable. No complaint offered. Current Medications: Active Medications Generic Name Dose Route Start Last Admin Trade Name Freq PRN Reason Stop Dose Admin Acetaminophen 650 mg 06/18/19 16:37 06/29/19 21:14 Tylenol - PO 650 mg Q4H PRN Administration FEVER Al Hydroxide/Mg Hydroxide 30 ml 06/18/19 16:37 07/03/19 15:53 Mylanta Oral Suspension - PO 30 ml Q6H PRN Administration DYSPEPSIA Bupropion HCl 150 mg 06/26/19 10:00 07/06/19 10:21 Wellbutrin Xl - PO 150 mg DAILY CONCETTA Administration Eucalyptus/Menthol/Phenol/Sorbitol 1 each 06/18/19 16:37 Cepastat Lozenge - MM Q4H PRN SORE THROAT Guaifenesin 10 ml 06/18/19 16:37 Robitussin - PO Q6H PRN COUGH Hydroxyzine Pamoate 25 mg 06/18/19 16:37 07/01/19 06:16 Vistaril - PO 25 mg Q4H PRN Administration AGITATION Ibuprofen 400 mg 06/18/19 16:37 06/27/19 22:03 Motrin - PO 400 mg Q6H PRN Administration Pain level 4-6 Magnesium Citrate 300 ml 06/18/19 16:37 Citroma - PO Q48H PRN CONSTIPATION Magnesium Hydroxide 30 ml 06/18/19 16:37 Milk Of Magnesia - PO DAILY PRN CONSTIPATION Melatonin 5 mg 06/18/19 22:00 07/05/19 21:17 Melatonin PO 5 mg HS PRN Administration INSOMNIA Methocarbamol 500 mg 06/21/19 10:00 07/06/19 10:21 Robaxin - PO 500 mg BID CONCETTA Administration Multi-Ingredient Lotion 1 applic 06/21/19 10:00 07/06/19 10:22 Eucerin (Small Jar) - TP 1 applic BID CONCETTA Administration Multivitamins/Minerals/Vitamin C 1 tab 06/21/19 10:00 07/06/19 10:22 Tab-A-Vit - PO 1 tab DAILY CONCETTA Administration Nicotine 14 mg 06/24/19 10:00 07/06/19 10:22 Nicoderm Patch - TD Not Given DAILY CONCETTA Nicotine Polacrilex 2 mg 06/23/19 14:17 Nicorette Gum - BUC Q2H PRN NICOTINE REPLACEMENT RX Pseudoephedrine/Triprolidine 1 combo 06/18/19 16:37 Actifed - PO TID PRN NASAL CONGESTION Quetiapine Fumarate 150 mg 06/19/19 22:00 07/05/19 21:19 Seroquel - PO 150 mg HS CONCETTA Administration Quetiapine Fumarate 100 mg 06/26/19 10:00 07/06/19 10:21 Seroquel - PO 100 mg DAILY CONCETTA Administration Thiamine HCl 100 mg 06/18/19 22:00 07/05/19 21:17 Vitamin B1 - PO 100 mg HS CONCETTA Administration Medication(s) Change(s): No. Scripts for bupropion XL 150 mg po daily (30 tablets) + seroquel 200 mg po hs (30 tablets) + 50 mg po daily (30 tablets) are electronically sent to [facility]. Medications are well tolerated. Patient has reiterated his informed consent. Current Side Effect: No Lab tests ordered: No Lab tests reviewed: Yes Provider note:: Request for psychiatric follow-up is answered. Chart reviewed. Met with the patient with nurse Daly in attendance (with patient's verbal authorization). Mr Mabry reports adequate sleep, stable mood, good energy level and motivation for maintenance of sobriety. He admits to feeling considerably improved. Has become more hopeful and confident in his abilities to conquer his addictions and give his life a new direction. [facility] helpful in several domains : restauration of self- esteem, future-orientedness, deeper insight into the deleterious consequences of substance abuse, improved understanding of the importance of avoidance of triggers and adherence to OPD care. Cognition is intact. Mr Mabry is noted as neatly groomed, well nourished and rested. Mental status has remained stable. See MSE report for details. Patient is at his baseline. Total face to face time:: 25 Mental Status Exam - Mental Status Exam Alert and Oriented to: Time, Place, Person Cognitive Function: Good Patient Appearance: Well Groomed Mood: Hopeful, Euthymic Affect: Appropriate, Normal Range Patient Behavior: Appropriate, Cooperative Speech Pattern: Clear, Appropriate Voice Loudness: Normal Thought Process: Intact, Goal Oriented Thought Disorder: Not Present Hallucinations: Denies Suicidal Ideation: Denies Homicidal Ideation: Denies Insight/Judgement: Good Sleep: Well Appetite: Good Gait/Station: Normal Psychiatric Treatment Plan - Problem List (1) Depressive disorder Current Visit: Yes Comment: . (2) Alcohol dependence Current Visit: Yes Qualifiers: Substance use status: in remission Qualified Code(s): F10.21 - Alcohol dependence, in remission Comment: . (3) Benzodiazepine dependence Current Visit: Yes Comment: . (4) Opioid abuse Current Visit: Yes Comment: . (5) Nicotine dependence Current Visit: Yes Qualifiers: Nicotine product type: cigarettes Substance use status: uncomplicated Qualified Code(s): F17.210 - Nicotine dependence, cigarettes, uncomplicated Comment: . (6) Cocaine dependence Current Visit: Yes Qualifiers: Substance use status: uncomplicated Qualified Code(s): F14.20 - Cocaine dependence, uncomplicated Comment: . (7) Cannabis dependence Current Visit: Yes (8) Substance induced mood disorder Current Visit: Yes Comment: . (9) Insomnia Current Visit: Yes Qualifiers: Insomnia type: unspecified Qualified Code(s): G47.00 - Insomnia, unspecified Comment: .
[2019-07-06] MEDS: QUEtiapine FUMARATE 50 MG TABLET PO SCH (21:31)
[2019-07-06] MEDS: THIAMINE HCL 100 MG TABLET (FP) PO SCH (21:31)
[2019-07-06] MEDS: MELATONIN 5 MG TABLETS PO PRN (21:31)
[2019-07-07 07:09] VITALS: BP 112/69; PULSE 74; TEMP 98
[2019-07-07] MEDS: MINERAL OIL/PETROLAT/WATER TOPICAL CREAM 113 GM JAR TP SCH (09:58)
[2019-07-07] MEDS: METHOCARBAMOL 500 MG TABLET PO SCH (09:58)
[2019-07-07] MEDS: NICOTINE 14 MG/24 HOURS TOPICAL PATCH TD SCH (09:58)
[2019-07-07] MEDS: QUEtiapine FUMARATE 100 MG TABLET (FP) PO SCH (09:58)
[2019-07-07] MEDS ORDERED: PT OWN MED DRAWER 7, Y5N ONE (09:58)
[2019-07-07] MEDS: MULTIVITAMINS (DAILY MVI) TABLET (FP) PO SCH (09:58)
--- NOTE | 2019-07-07 11:34 | PN ---
[facility] Progress Note Note: Pt was discharged this morning as scheduled in stable condition. Vital Signs - 24 hr 07/07/19 07/07/19 07/07/19 00:30 03:30 07:09 Temperature 98 F Pulse Rate 74 Respiratory 18 18 18 Rate Blood Pressure 112/69 D/w pt to follow up with referrals as scheduled.
== END 2019-07-07 10:05 | disposition home or self-care (01) | DRG 772 ==
LOC: YASAS 13:33 → Y3W 17:22
PROVIDERS: ADMIT Neuromusculoskeletal Medicine & OMM; ATTEND Neuromusculoskeletal Medicine & OMM
PROC: HZ42ZZZ Group Counseling for Substance Abuse Treatment, Cognitive-Behavioral (ICD-10-PCS; principal; 2019-06-18)
DX: F10.20 Alcohol dependence, uncomplicated (principal); F13.20 Sedative, hypnotic or anxiolytic dependence, uncomplicated; F14.20 Cocaine dependence, uncomplicated; F12.20 Cannabis dependence, uncomplicated; F11.10 Opioid abuse, uncomplicated; F17.210 Nicotine dependence, cigarettes, uncomplicated; F32.9 Major depressive disorder, single episode, unspecified; F19.24 Other psychoactive substance dependence with psychoactive substance-induced mood disorder; K21.9 Gastro-esophageal reflux disease without esophagitis; G47.00 Insomnia, unspecified; T78.1XXA Other adverse food reactions, not elsewhere classified, initial encounter; R21 Rash and other nonspecific skin eruption; X58.XXXA Exposure to other specified factors, initial encounter
CPT/HCPCS: 36415; 80053; 81003; 85027; 86593

== ENCOUNTER 2020-03-15 11:15 | Inpatient (IN) | payer OTHER ==
--- NOTE | 2020-03-15 11:29 | BHS.RME ---
Substance Use & Tx History - Substance Use History Alcohol Substance amount: 2 six pack beers Frequency of use: Daily Substance route: Oral Date of Last Use: 03/14/20 (2pm) Cocaine-Crack Substance amount: up $300 Frequency of use: Daily Substance route: Smoking Date of Last Use: 03/15/20 Xanax Substance amount: 2mg Frequency of use: Less than 3 times per week Substance route: Oral Date of Last Use: 03/12/20 Nicotine Substance amount: 1 pack Frequency of use: Daily Substance route: Smoking Date of Last Use: 03/15/20 Physical/Psych/Mental Status - Behavior General Behavior: Increased activity (restlessness, agitation) Eye Contact: Normal - Cooperativeness Cooperativeness: Cooperative - Thinking Thought Processes: Tight, Logical, Goal Directed - Physical Health Problems Is patient presently having any pain?: No Does patient presently have any injuries (include location): No Does patient currently have a fever: No Is patient : No CIWA Nausea/Vomitin Muscle Tremors: 2 Anxiety: 3 Agitation: 3 Paroxysmal Sweats: 1-Minimal Palms Moist Orientation: 1-Uncertain about Date Tacttile Disturbances: 0-None Auditory Disturbances: 0-None Visual Disturbances: 0-None Headache: 0-None Present CIWA-Ar Total Score: 13
[2020-03-15] MEDS ORDERED: IBUPROFEN 400 MG TABLET (FP) PO PRN (12:14)
[2020-03-15] MEDS ORDERED: MENTHOL/PHENOL 1 EACH UD MM PRN (12:14)
[2020-03-15] MEDS ORDERED: BISMUTH SUBSALICYLATE 524 MG/30 ML UD PO PRN (12:14)
[2020-03-15] MEDS ORDERED: MAGNESIUM HYDROX 2400MG/30ML ORAL SUSPENSION 30 ML CUP PO PRN (12:14)
[2020-03-15] MEDS ORDERED: ACETAMINOPHEN 325 MG TABLET (FP) PO PRN ×2 (12:14)
[2020-03-15] MEDS ORDERED: NICOTINE POLACRILEX 2 MG GUM BUC PRN (12:14)
[2020-03-15] MEDS ORDERED: MAGNESIUM CITRATE 300 ML BOTTLE PO PRN (12:14)
[2020-03-15] MEDS ORDERED: chlordiazePOXIDE HCL 25 MG CAPSULE PO PRN (12:14)
[2020-03-15] MEDS ORDERED: ONDANSETRON *ODT* 4 MG TABLET SL PRN (12:14)
--- NOTE | 2020-03-15 12:14 | HP ---
CIWA Score Nausea/Vomitin Muscle Tremors: 2 Anxiety: 3 Agitation: 3 Paroxysmal Sweats: 1-Minimal Palms Moist Orientation: 1-Uncertain about Date Tacttile Disturbances: 0-None Auditory Disturbances: 0-None Visual Disturbances: 0-None Headache: 0-None Present CIWA-Ar Total Score: 13 - Admission Criteria OASAS Guidelines: Admission for Medically Managed Detox: Requires at least one of the followin. CIWA greater than 12 2. Seizures within the past 24 hours 3. Delirium tremens within the past 24 hours 4. Hallucinations within the past 24 hours 5. Acute intervention needed for co occurring medical disorder 6. Acute intervention needed for co occurring psychiatric disorder 7. Severe withdrawal that cannot be handled at a lower level of care (continued vomiting, continued diarrhea, abnormal vital signs) requiring intravenous medication and/or fluids 8. Admitting History and Physical - Admission Chief Complaint: Mr. Mabry is a 44 yo man who presents to [facility] requesting admission to detox for alcohol use disorder. History of Present Illness: Mr. Mabry is a 44 yo man who presents to [facility] requesting admission to detox for alcohol use disorder. He was last here between Jun 18 and Jul 07 for detox and 2 days of Rehab. He relapsed in October of this year. PMH: arthritis PSH; none Psych: insomnia, bipolar, anxiety, depression, stopped meds in October of this year SOC: homeless on streets Legal: none Substance Use History Alcohol Substance amount: 2 six pack beers, 12 ounce cans Frequency of use: Daily Substance route: Oral Date of Last Use: 03/14/20 (2pm) First use age 15 y No seizures or blackouts. 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 Xanax Substance amount: 2mg Frequency of use: Less than 3 times per week Substance route: Oral Date of Last Use: 03/12/20 First use age 34 y Nicotine Substance amount: 1 pack Frequency of use: Daily Substance route: Smoking Date of Last Use: 03/15/20 First use age 15 y History Source: Patient Limitations to Obtaining History: No Limitations - Smoking History Smoking history: Current every day smoker Have you smoked in the past 12 months: Yes Aproximately how many cigarettes per day: 20 - Alcohol/Substance Use Hx Alcohol Use: Yes Admission ROS S - HPI Allergies/Adverse Reactions: Allergies Allergy/AdvReac Type Severity Reaction Status Date / Time No Known Allergies Allergy Verified 03/15/20 12:11 Exam Limitations: No Limitations - Ebola screening Have you traveled outside of the country in the last 21 days: No Have you been sick,other than usual withdrawal symptoms: No Do you have a fever: No - Review of Systems Constitutional: Loss of Appetite, Unintentional Wgt. Loss (20 lb in 3 mos) EENT: reports: No Symptoms Reported Respiratory: reports: No Symptoms reported Cardiac: reports: No Symptoms Reported GI: reports: Diarrhea : reports: No Symptoms Reported Musculoskeletal: reports: Joint Pain (knees, back, fingers) Integumentary: reports: Pruritus (poison ran left forearm) Neuro: reports: No Symptoms reported Endocrine: reports: No Symptoms Reported Hematology: reports: No Symptoms Reported Psychiatric: reports: Anxious Patient History - Patient Medical History Hx Anemia: No Hx Asthma: No Hx Chronic Obstructive Pulmonary Disease (COPD): No Hx Cancer: No Hx Cardiac Disorders: No Hx Congestive Heart Failure: No Hx Hypertension: No Hx Hypercholesterolemia: No Hx Pacemaker: No HX Cerebrovascular Accident: No Hx Seizures: No Hx Dementia: No Hx Diabetes: No Hx Gastrointestinal Disorders: No Hx Liver Disease: No Hx Genitourinary Disorders: No Hx Sexually Transmitted Disorders: No Hx Renal Disease (ESRD): No Hx Thyroid Disease: No Hx Human Immunodeficiency Virus (HIV): No (last 2017 negative) Hx Hepatitis C: No Hx Depression: No Hx Suicide Attempt: No Hx Bipolar Disorder: No Hx Schizophrenia: No - Patient Surgical History Past Surgical History: Yes Hx Neurologic Surgery: No Hx Cataract Extraction: No Hx Cardiac Surgery: No Hx Lung Surgery: No Hx Breast Surgery: No Hx Breast Biopsy: No Hx Abdominal Surgery: No Hx Appendectomy: No Hx Cholecystectomy: No Hx Genitourinary Surgery: No Hx Section: No Hx Orthopedic Surgery: No Other Surgical History: right inguinal hernia repair in 2016 Anesthesia Reaction: No - PPD History Date: 07/03/18 Results: 0mm - Smoking Cessation Smoking history: Current every day smoker Have you smoked in the past 12 months: Yes Aproximately how many cigarettes per day: 20 Cigars Per Day: 0 Hx Chewing Tobacco Use: No Initiated information on smoking cessation: Yes 'Breaking Loose' booklet given: 03/15/20 Admission Physical Exam [facility] - Physical General Appearance: Yes: No Apparent Distress, Nourished, Appropriately Dressed HEENTM: Yes: EOMI, Hearing grossly Normal, Normocephalic, Normal Voice Respiratory: Yes: Within Normal Limits, Lungs Clear, Normal Breath Sounds, No Accessory Muscle Use Neck: Yes: Within Normal Limits, Supple Breast: Yes: Breast Exam Deferred Cardiology: Yes: Regular Rhythm, Regular Rate, S1, S2 Abdominal: Yes: Normal Bowel Sounds, Non Tender, Flat, Soft Back: Yes: Normal Inspection Musculoskeletal: Yes: Gait Steady Extremities: Yes: Non-Tender Neurological: Yes: Alert, Normal Response Integumentary: Yes: Other (rash, bilateral forearms, near antecubital fossa, scratchses near rash. Several superfical abrasions on both legs pt attributes to working outdoors) - Diagnostic (1) Contact dermatitis due to poison ran Current Visit: Yes Status: Acute (2) Alcohol dependence with uncomplicated withdrawal Current Visit: Yes Status: Acute (3) Benzodiazepine dependence Current Visit: Yes Status: Acute Comment: . (4) Cocaine dependence Current Visit: Yes Status: Acute Qualifiers: Substance use status: uncomplicated Qualified Code(s): F14.20 - Cocaine dependence, uncomplicated Comment: . (5) Nicotine dependence Current Visit: Yes Status: Acute Qualifiers: Nicotine product type: cigarettes Substance use status: uncomplicated Joey lified Code(s): F17.210 - Nicotine dependence, cigarettes, uncomplicated Comment: . Cleared for Admission [facility] - Detox or Rehab [facility] Level of Care: Medically Managed Detox Regimen/Protocol: Librium Breathalyzer - Breathalyzer Breathalyzer: 0 Urine Drug Screen - Test Device Lot number: [id number] Expiration date: 05/01/21 - Control Is test valid?: Yes - Results Drug screen NEGATIVE: No Urine drug screen results: CRISTOBAL-Cocaine Inpatient Rehab Admission - Rehab Decision to Admit Inpatient rehab admission?: No
[2020-03-15 12:38] VITALS: BMI 21.4
[2020-03-15] MEDS: METHOCARBAMOL 500 MG TABLET PO PRN (13:44)
[2020-03-15] MEDS: hydrOXYzine PAMOATE 25 MG CAPSULE (FP) PO SCH ×3 (13:44→22:19)
[2020-03-15] MEDS: NICOTINE 21 MG/24 HOURS TOPICAL PATCH TD SCH (13:49)
--- NOTE | 2020-03-15 16:23 | CONSULT ---
[facility] Psychiatric Consult - Data Date of interview: 03/15/20 Admission source: [facility] Identifying data: Revisit to [facility] and admission to [address] [place] [address] for this 44 y/o male self-referred for detoxification treatment. KEVEN issues : cocaine, alcohol, benzodiazepine (xanax), nicotine. Patient is single, a father of two, homeless, unemployed and supported on welfare. Substance Abuse History: Discussed with the patient. KEVEN profile as follows : A lcohol. Substance amount: 2 six pack beers, 12 ounce cans. Frequency of use: Daily. Substance route: Oral. Date of Last Use: 03/14/20 (2pm). First use age 15 y. No seizures or blackouts. 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 Cocaine-Crack. Substance amount: up $300. Frequency of use: Daily. Substance route: Smoking. Date of Last Use: 03/15/20. First use aage 15 y. Xanax. Substance amount: 2mg. Frequency of use: Less than 3 times per week. Substance route: Oral. Date of Last Use: 03/12/20. First use age 34 y. Nicotine. Substance amount: 1 pack. Frequency of use: Daily. Substance route: Smoking. Date of Last Use: 03/15/20. First use age 15 y. History Source: Patient. Limitations to Obtaining History: No Limitations. Smoking History. Smoking history: Current every day smoker. Have you smoked in the past 12 months: Yes. Aproximately how many cigarettes per day: 20. History of multiple KEVEN treatment failures. Medical History: Medical profile is remarkable for arthritis and history of bilateral inguinal herniorraphy. Scar noted of right zygomatic region (result of a job-related injury at a [employer] shop months ago). Patient ambulates with a c ane. Psychiatric History: Patient denies history of psychiatric hospitalizations or suicide attempts. Mr Mabry states that he has been diagnosed, over the years, with MDD and Anxiety Disorder. He got discharged from [address] on a regimen of wellbutrin XL 150 mg/day + seroquel 50 mg/am and 200 mg/hs in July 2019. Patient admits to total non-adherence to aftercare referrals (chronic pattern of behavior after discharges from substance use treatment centers). No follow-up or compliance with medications for " more than three months because of COVID-19." Patient attributes his non-adherence to his inability to find an OPD care provider in the community. Physical/Sexual Abuse/Trauma History: Enduring stressors : separation from his two daughters, estrangement from now to his best friend, being on parole after serving three years in longterm, homelessness, chronic unemployment, financial constraints, illness of biological mother. Additional Comment: Urine drug screen results: CRISTOBAL-Cocaine. Noted. Mental Status Exam - Mental Status Exam Alert and Oriented to: Time, Place, Person Cognitive Function: Good Patient Appearance: Well Groomed Mood: Nervous, Withdrawn Affect: Mood Congruent, Constricted Patient Behavior: Fatigued, Appropriate, Cooperative Speech Pattern: Clear, Appropriate Voice Loudness: Normal Thought Process: Intact, Goal Oriented Thought Disorder: Not Present Hallucinations: Denies Suicidal Ideation: Denies Homicidal Ideation: Denies Insight/Judgement: Poor Sleep: Poorly, Difficulty falling asleep (wants to get back on seroquel at bedtime) Appetite: Good Gait/Station: Other (patient ambulates with a cane) Psychiatric Findings - Problem List ([place] 1, 2,3) (1) Alcohol dependence with uncomplicated withdrawal Current Visit: Yes Status: Acute (2) Benzodiazepine dependence Current Visit: Yes Status: Chronic Comment: . (3) Cocaine dependence Current Visit: Yes Status: Chronic Qualifiers: Substance use status: uncomplicated Qualified Code(s): F14.20 - Cocaine dependence, uncomplicated Comment: . (4) Nicotine dependence Current Visit: Yes Status: Chronic Qualifiers: Nicotine product type: cigarettes Substance use status: uncomplicated Qualified Code(s): F17.210 - Nicotine dependence, cigarettes, uncomplicated Comment: . (5) Substance induced mood disorder Current Visit: Yes Status: Chronic Comment: . (6) Depressive disorder Current Visit: Yes Status: Chronic (7) Insomnia Current Visit: Yes Status: Chronic Qualifiers: Insomnia type: unspecified Qualified Code(s): G47.00 - Insomnia, unspecified Comment: . (8) Non-compliance Current Visit: Yes Status: Chronic Comment: . - Initial Treatment Plan Initial Treatment Plan: Psychoeducation. Sleep hygiene. Support. Detoxification in progress. Resumed at patient's request : seroquel 150 mg po hs (reduced) + seroquel 50 mg po daily + wellbutrin XL 150 mg po daily. Side effects/benefits of both drugs are discussed with the patient. Mr Mabry is in agreement with this plan of care (seroquel dose is reduced as a precaution against oversedation). Granted consent (verbal) to MD. Caballero.
[2020-03-15 16:30] LABS: HEMATOCRIT 42.7 % (35.4-49); HEMOGLOBIN 14.5 GM/dL (11.7-16.9); MCH 33.8 pg (25.7-33.7); MEAN CELL VOLUME 99.4 fl (80-96); MEAN PLT VOLUME 7.9 fl (7.5-11.1); PLATELET COUNT 258 K/MM3 (134-434); RDW 13.5 % (11.9-15.9); WHITE BLOOD COUNT 5.5 K/mm3 (4.0-10.0)
[2020-03-15 16:41] LABS: ALBUMIN 3.4 g/dl (3.4-5.0); CALCIUM 8.8 mg/dL (8.5-10.1); POTASSIUM 3.9 mmol/L (3.5-5.1)
[2020-03-15 16:45] LABS: BILIRUBIN,TOTAL 0.7 mg/dL (0.2-1); CREATININE 0.9 mg/dL (0.55-1.3); TOT PROT 6.5 g/dl (6.4-8.2)
[2020-03-15] MEDS: chlordiazePOXIDE HCL 25 MG CAPSULE PO SCH ×2 (17:24→22:18)
[2020-03-15] MEDS ORDERED: QUEtiapine FUMARATE 100 MG TABLET (FP) ONE (21:07)
[2020-03-15] MEDS ORDERED: QUEtiapine FUMARATE 50 MG TABLET ONE (21:07)
[2020-03-15] MEDS ORDERED: QUEtiapine FUMARATE 100 MG TABLET (FP) PO SCH (22:00)
[2020-03-15] MEDS: QUETIAPINE FUMARATE 100 MG, QUETIAPINE FUMARATE 50 MG PO SCH (22:18)
[2020-03-15] MEDS: THIAMINE HCL 100 MG TABLET (FP) PO SCH (22:18)
[2020-03-15] MEDS: MELATONIN 5 MG TABLETS PO SCH (22:19)
[2020-03-16] MEDS: hydrOXYzine PAMOATE 25 MG CAPSULE (FP) PO SCH (06:28)
[2020-03-16] MEDS: chlordiazePOXIDE HCL 25 MG CAPSULE PO SCH ×4 (06:28→21:59)
[2020-03-16] MEDS ORDERED: hydrOXYzine PAMOATE 25 MG CAPSULE (FP) PO PRN (08:32)
[2020-03-16] MEDS ORDERED: IBUPROFEN 400 MG TABLET (FP) PO PRN (10:19)
--- NOTE | 2020-03-16 10:19 | PN ---
S CIWA - CIWA Score Nausea/Vomitin-No Nausea/No Vomiting Muscle Tremors: 3 Anxiety: 2 Agitation: 2 Paroxysmal Sweats: 2 Orientation: 0-Oriented Tacttile Disturbances: 0-None Auditory Disturbances: 0-None Visual Disturbances: 0-None Headache: 0-None Present CIWA-Ar Total Score: 9 [facility] Progress Note (SOAP) Subjective: sweats shakes irritable agitation body aches interrupted sleep the medication librium is too bitter and make me nauseas. Objective: 03/16/20 10:18 Vital Signs Temperature 97.3 F L 03/16/20 10:27 Pulse Rate 76 03/16/20 10:27 Respiratory Rate 18 03/16/20 10:27 Blood Pressure 140/76 03/16/20 10:27 O2 Sat by Pulse Oximetry (%) 98 03/16/20 05:38 LABS 03/15/20 03/15/20 03/15/20 12:15 12:15 12:15 WBC 5.5 RBC 4.30 Hgb 14.5 Hct 42.7 MCV 99.4 H MCH 33.8 H MCHC 34.0 RDW 13.5 Plt Count 258 MPV 7.9 Sodium 142 Potassium 3.9 Chloride 107 Carbon Dioxide 28 Anion Gap 7 L BUN 16.0 Creatinine 0.9 Est GFR (CKD-EPI)AfAm 119.13 Est GFR (CKD-EPI)NonAf 102.79 Random Glucose 123 H Calcium 8.8 Total Bilirubin 0.7 AST 33 ALT 33 Alkaline Phosphatase 132 H Total Protein 6.5 Albumin 3.4 Syphilis Serology Non-reactive COVID-19 (SHELLIE) 03/15/20 13:30 WBC RBC Hgb Hct MCV MCH MCHC RDW Plt Count MPV Sodium Potassium Chloride Carbon Dioxide Anion Gap BUN Creatinine Est GFR (CKD-EPI)AfAm Est GFR (CKD-EPI)NonAf Random Glucose Calcium Total Bilirubin AST ALT Alkaline Phosphatase Total Protein Albumin Syphilis Serology COVID-19 (SHELLIE) Not detected labs noted aaox3 ambulating no acute distress Assessment: 03/16/20 10:18 withdrawals myself and Kristy spoke with patient to assist with his concerns. Pt feels very nausea and the bitter taste of the medication make his stomach feel awful. We discussed the reason for the hospital policy and protocol and he understands however he felt that this way doesn't work for him because it really make him feel terrible. We came to an agreement to have the RN partially open the capsule dissolve in water or juice and he will drink it this way. Rn was explained how to partially open the capsule, dissolve it in water or juice and have pt swallow the medication then open his mouth. Pt and RN was observed during medication time and pt was compliant and felt better with no bitter taste in his mouth and s/s of nausea. orders for partial opening capsule was put in place. Plan: continue detox with adjusted orders as per agreement. increase fluids roboxin prn motrin 800mg prn
[2020-03-16] MEDS: PRENATAL VITAMINS W/ FOLIC ACID TABLET (FP) PO SCH (10:32)
[2020-03-16] MEDS: NICOTINE 21 MG/24 HOURS TOPICAL PATCH TD SCH (10:50)
[2020-03-16] MEDS: QUEtiapine FUMARATE 50 MG TABLET PO SCH (10:51)
[2020-03-16] MEDS ORDERED: chlordiazePOXIDE HCL 25 MG CAPSULE PO PRN (10:58)
[2020-03-16] MEDS ORDERED: chlordiazePOXIDE HCL 25 MG CAPSULE PO SCH (10:58)
[2020-03-16] MEDS ORDERED: QUEtiapine FUMARATE 100 MG TABLET (FP) ONE (20:37)
[2020-03-16] MEDS ORDERED: QUEtiapine FUMARATE 50 MG TABLET ONE (20:37)
[2020-03-16] MEDS: THIAMINE HCL 100 MG TABLET (FP) PO SCH (21:59)
[2020-03-16] MEDS: QUETIAPINE FUMARATE 100 MG, QUETIAPINE FUMARATE 50 MG PO SCH (22:00)
[2020-03-16] MEDS: MELATONIN 5 MG TABLETS PO SCH (22:00)
[2020-03-17] MEDS ORDERED: chlordiazePOXIDE HCL 25 MG CAPSULE PO SCH (05:00)
[2020-03-17] MEDS: chlordiazePOXIDE HCL 25 MG CAPSULE PO SCH ×4 (05:41→22:55)
[2020-03-17] MEDS: PRENATAL VITAMINS W/ FOLIC ACID TABLET (FP) PO SCH (10:20)
[2020-03-17] MEDS: NICOTINE 21 MG/24 HOURS TOPICAL PATCH TD SCH (10:21)
[2020-03-17] MEDS: QUEtiapine FUMARATE 50 MG TABLET PO SCH (10:21)
--- NOTE | 2020-03-17 13:18 | PN ---
[facility] CIWA - CIWA Score Nausea/Vomitin-Mild Nausea/No Vomiting Muscle Tremors: 2 Anxiety: 2 Agitation: 2 Paroxysmal Sweats: No Perspiration Orientation: 0-Oriented Tacttile Disturbances: 1-Very Mild Itch/Numbness Auditory Disturbances: 0-None Visual Disturbances: 0-None Headache: 1-Very Mild CIWA-Ar Total Score: 9 S Progress Note (SOAP) Subjective: alert,irritable,anxious,interrupted sleep,pain in the body Objective: 03/17/20 13:17 Vital Signs Temperature 97.3 F L 03/17/20 08:47 Pulse Rate 89 03/17/20 08:47 Respiratory Rate 18 03/17/20 08:47 Blood Pressure 124/71 03/17/20 08:47 O2 Sat by Pulse Oximetry (%) 96 03/17/20 05:37 Laboratory Last Values WBC 5.5 K/mm3 (4.0-10.0) 03/15/20 12:15 RBC 4.30 M/mm3 (4.00-5.60) 03/15/20 12:15 Hgb 14.5 GM/dL (11.7-16.9) 03/15/20 12:15 Hct 42.7 % (35.4-49) 03/15/20 12:15 MCV 99.4 fl (80-96) H 03/15/20 12:15 MCH 33.8 pg (25.7-33.7) H 03/15/20 12:15 MCHC 34.0 g/dl (32.0-35.9) 03/15/20 12:15 RDW 13.5 % (11.9-15.9) 03/15/20 12:15 Plt Count 258 K/MM3 (134-434) 03/15/20 12:15 MPV 7.9 fl (7.5-11.1) 03/15/20 12:15 Sodium 142 mmol/L (136-145) 03/15/20 12:15 Potassium 3.9 mmol/L (3.5-5.1) 03/15/20 12:15 Chloride 107 mmol/L (98-107) 03/15/20 12:15 Carbon Dioxide 28 mmol/L (21-32) 03/15/20 12:15 Anion Gap 7 MMOL/L (8-16) L 03/15/20 12:15 BUN 16.0 mg/dL (7-18) 03/15/20 12:15 Creatinine 0.9 mg/dL (0.55-1.3) 03/15/20 12:15 Est GFR (CKD-EPI)AfAm 119.13 03/15/20 12:15 Est GFR (CKD-EPI)NonAf 102.79 03/15/20 12:15 Random Glucose 123 mg/dL (74-106) H 03/15/20 12:15 Calcium 8.8 mg/dL (8.5-10.1) 03/15/20 12:15 Total Bilirubin 0.7 mg/dL (0.2-1) 03/15/20 12:15 AST 33 U/L (15-37) 03/15/20 12:15 ALT 33 U/L (13-61) 03/15/20 12:15 Alkaline Phosphatase 132 U/L (45-117) H 03/15/20 12:15 Total Protein 6.5 g/dl (6.4-8.2) 03/15/20 12:15 Albumin 3.4 g/dl (3.4-5.0) 03/15/20 12:15 Syphilis Serology Non-reactive (NONREACTIVE) 03/15/20 12:15 COVID-19 (SHELLIE) Not detected (Not Detected) 03/15/20 13:30 Assessment: 03/17/20 13:18 withdrawal symptom Plan: continue detox librium regimen,initial glucose 123,fasting glucose in am
[2020-03-17] MEDS: METHOCARBAMOL 500 MG TABLET PO PRN (17:22)
[2020-03-17] MEDS ORDERED: QUEtiapine FUMARATE 100 MG TABLET (FP) ONE (19:48)
[2020-03-17] MEDS ORDERED: QUEtiapine FUMARATE 50 MG TABLET ONE (19:48)
[2020-03-17] MEDS: MAG HYDROX/AL HYDROX/SIMETH 30 ML UNIT-DOSE CUP PO PRN (20:06)
[2020-03-17] MEDS: MELATONIN 5 MG TABLETS PO SCH (22:55)
[2020-03-17] MEDS: THIAMINE HCL 100 MG TABLET (FP) PO SCH (22:55)
[2020-03-17] MEDS: QUETIAPINE FUMARATE 100 MG, QUETIAPINE FUMARATE 50 MG PO SCH (22:55)
[2020-03-18] MEDS ORDERED: chlordiazePOXIDE HCL 10 MG CAPSULE PO PRN ×2
[2020-03-18] MEDS ORDERED: chlordiazePOXIDE HCL 10 MG CAPSULE PO SCH (05:00)
[2020-03-18] MEDS: chlordiazePOXIDE HCL 10 MG CAPSULE PO SCH ×4 (05:40→22:03)
[2020-03-18] MEDS: NICOTINE 21 MG/24 HOURS TOPICAL PATCH TD SCH (11:03)
[2020-03-18] MEDS: PRENATAL VITAMINS W/ FOLIC ACID TABLET (FP) PO SCH (11:03)
[2020-03-18] MEDS: QUEtiapine FUMARATE 50 MG TABLET PO SCH (11:03)
--- NOTE | 2020-03-18 14:02 | PN ---
[facility] CIWA - CIWA Score Nausea/Vomitin-No Nausea/No Vomiting Muscle Tremors: 2 Anxiety: 2 Agitation: 1-Slight > Activity Paroxysmal Sweats: 2 Orientation: 0-Oriented Tacttile Disturbances: 0-None Auditory Disturbances: 0-None Visual Disturbances: 0-None Headache: 0-None Present CIWA-Ar Total Score: 7 BHS Progress Note (SOAP) Subjective: Complaints of anxiety, tremors and sweats. Objective: 03/18/20 14:03 Vital Signs 03/18/20 03/18/20 08:47 12:41 Temperature 97.1 F L 97.7 F Pulse Rate 79 96 H Respiratory 18 18 Rate Blood Pressure 117/71 113/66 O2 Sat by Pulse 100 97 Oximetry (%) Laboratory Last Values WBC 5.5 K/mm3 (4.0-10.0) 03/15/20 12:15 RBC 4.30 M/mm3 (4.00-5.60) 03/15/20 12:15 Hgb 14.5 GM/dL (11.7-16.9) 03/15/20 12:15 Hct 42.7 % (35.4-49) 03/15/20 12:15 MCV 99.4 fl (80-96) H 03/15/20 12:15 MCH 33.8 pg (25.7-33.7) H 03/15/20 12:15 MCHC 34.0 g/dl (32.0-35.9) 03/15/20 12:15 RDW 13.5 % (11.9-15.9) 03/15/20 12:15 Plt Count 258 K/MM3 (134-434) 03/15/20 12:15 MPV 7.9 fl (7.5-11.1) 03/15/20 12:15 Sodium 142 mmol/L (136-145) 03/15/20 12:15 Potassium 3.9 mmol/L (3.5-5.1) 03/15/20 12:15 Chloride 107 mmol/L (98-107) 03/15/20 12:15 Carbon Dioxide 28 mmol/L (21-32) 03/15/20 12:15 Anion Gap 7 MMOL/L (8-16) L 03/15/20 12:15 BUN 16.0 mg/dL (7-18) 03/15/20 12:15 Creatinine 0.9 mg/dL (0.55-1.3) 03/15/20 12:15 Est GFR (CKD-EPI)AfAm 119.13 03/15/20 12:15 Est GFR (CKD-EPI)NonAf 102.79 03/15/20 12:15 Random Glucose 123 mg/dL (74-106) H 03/15/20 12:15 Fasting Glucose 97 mg/dL (74-106) 03/18/20 07:20 Calcium 8.8 mg/dL (8.5-10.1) 03/15/20 12:15 Total Bilirubin 0.7 mg/dL (0.2-1) 03/15/20 12:15 AST 33 U/L (15-37) 03/15/20 12:15 ALT 33 U/L (13-61) 03/15/20 12:15 Alkaline Phosphatase 132 U/L (45-117) H 03/15/20 12:15 Total Protein 6.5 g/dl (6.4-8.2) 03/15/20 12:15 Albumin 3.4 g/dl (3.4-5.0) 03/15/20 12:15 Syphilis Serology Non-reactive (NONREACTIVE) 03/15/20 12:15 COVID-19 (SHELLIE) Not detected (Not Detected) 03/15/20 13:30 Labs noted. Assessment: 03/18/20 14:04 Alert and oriented x 3, in no acute respiratory distress. Full ROM, ambulating in the unit with cane. Withdrawal symptoms. Plan: Continue detox protocol.
[2020-03-18] MEDS: MAG HYDROX/AL HYDROX/SIMETH 30 ML UNIT-DOSE CUP PO PRN ×2 (16:54→23:13)
[2020-03-18] MEDS ORDERED: QUEtiapine FUMARATE 50 MG TABLET ONE (21:04)
[2020-03-18] MEDS ORDERED: QUEtiapine FUMARATE 100 MG TABLET (FP) ONE (21:04)
[2020-03-18] MEDS: QUETIAPINE FUMARATE 100 MG, QUETIAPINE FUMARATE 50 MG PO SCH (22:03)
[2020-03-18] MEDS: MELATONIN 5 MG TABLETS PO SCH (22:03)
[2020-03-18] MEDS: THIAMINE HCL 100 MG TABLET (FP) PO SCH (22:03)
[2020-03-19] MEDS ORDERED: chlordiazePOXIDE HCL 10 MG CAPSULE PO SCH (05:00)
[2020-03-19] MEDS: chlordiazePOXIDE HCL 10 MG CAPSULE PO SCH ×2 (06:13→17:24)
[2020-03-19] MEDS: QUEtiapine FUMARATE 50 MG TABLET PO SCH (10:21)
[2020-03-19] MEDS: PRENATAL VITAMINS W/ FOLIC ACID TABLET (FP) PO SCH (10:21)
[2020-03-19] MEDS: NICOTINE 21 MG/24 HOURS TOPICAL PATCH TD SCH (10:22)
--- NOTE | 2020-03-19 13:39 | PN ---
[facility] CIWA - CIWA Score Nausea/Vomitin-No Nausea/No Vomiting Muscle Tremors: None Anxiety: 2 Agitation: 1-Slight > Activity Paroxysmal Sweats: 1-Minimal Palms Moist Orientation: 0-Oriented Tacttile Disturbances: 0-None Auditory Disturbances: 0-None Visual Disturbances: 0-None Headache: 0-None Present CIWA-Ar Total Score: 4 [facility]HS Progress Note (SOAP) Subjective: Feels ok Objective: 03/19/20 13:37 Last Vital Signs Temp Pulse Resp BP Pulse Ox 97.7 F 93 H 18 128/66 99 03/19/20 08:55 03/19/20 08:55 03/19/20 08:55 03/19/20 08:55 03/19/20 08:55 Laboratory Tests 03/15/20 03/15/20 03/15/20 12:15 12:15 12:15 WBC 5.5 RBC 4.30 Hgb 14.5 Hct 42.7 MCV 99.4 H MCH 33.8 H MCHC 34.0 RDW 13.5 Plt Count 258 MPV 7.9 Sodium 142 Potassium 3.9 Chloride 107 Carbon Dioxide 28 Anion Gap 7 L BUN 16.0 Creatinine 0.9 Est GFR (CKD-EPI)AfAm 119.13 Est GFR (CKD-EPI)NonAf 102.79 Random Glucose 123 H Fasting Glucose Calcium 8.8 Total Bilirubin 0.7 AST 33 ALT 33 Alkaline Phosphatase 132 H Total Protein 6.5 Albumin 3.4 Syphilis Serology Non-reactive COVID-19 (SHELLIE) 03/15/20 03/18/20 13:30 07:20 WBC RBC Hgb Hct MCV MCH MCHC RDW Plt Count MPV Sodium Potassium Chloride Carbon Dioxide Anion Gap BUN Creatinine Est GFR (CKD-EPI)AfAm Est GFR (CKD-EPI)NonAf Random Glucose Fasting Glucose 97 Calcium Total Bilirubin AST ALT Alkaline Phosphatase Total Protein Albumin Syphilis Serology COVID-19 (SHELLIE) Not detected Labs reviewed Assessment: 03/19/20 13:38 Withdrawal sxs Plan: Continue detox Encourage PO water intake Patient scheduled for discharge tomorrow
[2020-03-19] MEDS: MAG HYDROX/AL HYDROX/SIMETH 30 ML UNIT-DOSE CUP PO PRN (18:34)
[2020-03-19] MEDS ORDERED: QUEtiapine FUMARATE 50 MG TABLET ONE (21:19)
[2020-03-19] MEDS ORDERED: QUEtiapine FUMARATE 100 MG TABLET (FP) ONE (21:19)
[2020-03-19] MEDS: QUETIAPINE FUMARATE 100 MG, QUETIAPINE FUMARATE 50 MG PO SCH (21:31)
[2020-03-19] MEDS: MELATONIN 5 MG TABLETS PO SCH (21:31)
[2020-03-19] MEDS: THIAMINE HCL 100 MG TABLET (FP) PO SCH (21:31)
[2020-03-20] MEDS ORDERED: chlordiazePOXIDE HCL 10 MG CAPSULE PO ONE ×2 (05:00)
[2020-03-20 09:27] VITALS: BP 130/72; PULSE 82; TEMP 97.2
[2020-03-20] MEDS: PRENATAL VITAMINS W/ FOLIC ACID TABLET (FP) PO SCH (10:38)
[2020-03-20] MEDS: NICOTINE 21 MG/24 HOURS TOPICAL PATCH TD SCH (10:39)
[2020-03-20] MEDS: QUEtiapine FUMARATE 50 MG TABLET PO SCH (10:39)
--- NOTE | 2020-03-20 13:15 | PN ---
[facility] CIWA - CIWA Score Nausea/Vomitin-No Nausea/No Vomiting Muscle Tremors: None Anxiety: 1-Mildly Anxious Agitation: 0-Normal Activity Paroxysmal Sweats: No Perspiration Orientation: 0-Oriented Tacttile Disturbances: 0-None Auditory Disturbances: 0-None Visual Disturbances: 0-None Headache: 0-None Present CIWA-Ar Total Score: 1 S Progress Note (SOAP) Subjective: alert,no complaint Objective: 03/20/20 13:13 Vital Signs Temperature 97.2 F L 03/20/20 08:40 Pulse Rate 82 03/20/20 08:40 Respiratory Rate 16 03/20/20 08:40 Blood Pressure 130/72 03/20/20 08:40 O2 Sat by Pulse Oximetry (%) 98 03/20/20 08:40 Assessment: 03/20/20 13:13 detox completed,no withdrawal symptom Plan: discharge today,follow up with after care program as arrangement
--- NOTE | 2020-03-20 13:16 | DS ---
[facility] Detox Discharge Summary Admission Date: 03/15/20 Discharge Date: 03/20/20 - History Present History: Alcohol Dependence, Cocaine Dependence, Sedative Dependence Additional Comments: alert,oriented x 3 ambulation on the unit lung clear bilaterally on auscultation abdomen,soft,n distension,no pain,no tenderness detox completed,no withdrawal symptom stable for discharge follow up with after care program [facility] arrangement total time of discharge 35 minutes Pertinent Past History: depressive disorder arthritis ambulation with cane - Physical Exam Results Vital Signs: Vital Signs Temperature 97.2 F L 03/20/20 08:40 Pulse Rate 82 03/20/20 08:40 Respiratory Rate 16 03/20/20 08:40 Blood Pressure 130/72 03/20/20 08:40 O2 Sat by Pulse Oximetry (%) 98 03/20/20 08:40 Pertinent Admission Physical Exam Findings: Vital Signs Temperature 97.2 F L 03/20/20 08:40 Pulse Rate 82 03/20/20 08:40 Respiratory Rate 16 03/20/20 08:40 Blood Pressure 130/72 03/20/20 08:40 O2 Sat by Pulse Oximetry (%) 98 03/20/20 08:40 Laboratory Last Values WBC 5.5 K/mm3 (4.0-10.0) 03/15/20 12:15 RBC 4.30 M/mm3 (4.00-5.60) 03/15/20 12:15 Hgb 14.5 GM/dL (11.7-16.9) 03/15/20 12:15 Hct 42.7 % (35.4-49) 03/15/20 12:15 MCV 99.4 fl (80-96) H 03/15/20 12:15 MCH 33.8 pg (25.7-33.7) H 03/15/20 12:15 MCHC 34.0 g/dl (32.0-35.9) 03/15/20 12:15 RDW 13.5 % (11.9-15.9) 03/15/20 12:15 Plt Count 258 K/MM3 (134-434) 03/15/20 12:15 MPV 7.9 fl (7.5-11.1) 03/15/20 12:15 Sodium 142 mmol/L (136-145) 03/15/20 12:15 Potassium 3.9 mmol/L (3.5-5.1) 03/15/20 12:15 Chloride 107 mmol/L (98-107) 03/15/20 12:15 Carbon Dioxide 28 mmol/L (21-32) 03/15/20 12:15 Anion Gap 7 MMOL/L (8-16) L 03/15/20 12:15 BUN 16.0 mg/dL (7-18) 03/15/20 12:15 Creatinine 0.9 mg/dL (0.55-1.3) 03/15/20 12:15 Est GFR (CKD-EPI)AfAm 119.13 03/15/20 12:15 Est GFR (CKD-EPI)NonAf 102.79 03/15/20 12:15 Random Glucose 123 mg/dL (74-106) H 03/15/20 12:15 Fasting Glucose 97 mg/dL (74-106) 03/18/20 07: Calcium 8.8 mg/dL (8.5-10.1) 03/15/20 12:15 Total Bilirubin 0.7 mg/dL (0.2-1) 03/15/20 12:15 AST 33 U/L (15-37) 03/15/20 12:15 ALT 33 U/L (13-61) 03/15/20 12:15 Alkaline Phosphatase 132 U/L (45-117) H 03/15/20 12:15 Total Protein 6.5 g/dl (6.4-8.2) 03/15/20 12:15 Albumin 3.4 g/dl (3.4-5.0) 03/15/20 12:15 Syphilis Serology Non-reactive (NONREACTIVE) 03/15/20 12:15 COVID-19 (SHELLIE) Not detected (Not Detected) 03/15/20 13:30 withdrawal sign and symptom - Treatment Hospital Course: Detox Protocol Followed, Detoxed Safely, Responded well, Discharged Condition Good, Rehab Referral Accepted Patient has Accepted a Rehab Referral to: [facility] - Medication Discharge Medications: Ambulatory Orders Bupropion HCl [Wellbutrin Xl -] 150 mg PO DAILY #30 tab.sr.24h 07/06/19 Quetiapine Fumarate [Seroquel -] 50 mg PO DAILY #30 tablet 07/06/19 Quetiapine Fumarate [Seroquel -] 200 mg PO HS #30 tab 11/05/19 - Diagnosis (1) Alcohol dependence with uncomplicated withdrawal Current Visit: Yes Status: Acute (2) Benzodiazepine dependence Current Visit: Yes Status: Chronic (3) Cocaine dependence Current Visit: Yes Status: Chronic Qualifiers: Substance use status: uncomplicated Qualified Code(s): F14.20 - Cocaine dependence, uncomplicated (4) Depressive disorder Current Visit: Yes Status: Chronic (5) Insomnia Current Visit: Yes Status: Chronic Qualifiers: Insomnia type: unspecified Qualified Code(s): G47.00 - Insomnia, unspecified (6) Nicotine dependence Current Visit: Yes Status: Chronic Qualifiers: Nicotine product type: cigarettes Substance use status: uncomplicated Qualified Code(s): F17.210 - Nicotine dependence, cigarettes, uncomplicated - AMA Did Patient Leave Against Medical Advice: No
== END 2020-03-20 01:35 | disposition other institution (70) | DRG 774 ==
LOC: YASAS 11:15 → Y6N 12:37
PROVIDERS: ADMIT Allergy & Immunology; ATTEND Allergy & Immunology
PROC: HZ2ZZZZ Detoxification Services for Substance Abuse Treatment (ICD-10-PCS; principal; 2020-03-15)
DX: F10.230 Alcohol dependence with withdrawal, uncomplicated (principal); F13.20 Sedative, hypnotic or anxiolytic dependence, uncomplicated; F14.20 Cocaine dependence, uncomplicated; F17.210 Nicotine dependence, cigarettes, uncomplicated; F19.24 Other psychoactive substance dependence with psychoactive substance-induced mood disorder; F32.9 Major depressive disorder, single episode, unspecified; G47.00 Insomnia, unspecified; M12.9 Arthropathy, unspecified; L23.7 Allergic contact dermatitis due to plants, except food; Z98.890 Other specified postprocedural states; Z99.89 Dependence on other enabling machines and devices; Z56.0 Unemployment, unspecified; Z59.0 Homelessness; Z91.19 Patient's noncompliance with other medical treatment and regimen
CPT/HCPCS: 36415; 80053; 82947; 85027; 86780; U0003

== ENCOUNTER 2020-03-20 13:44 | Inpatient (IN) | payer OTHER ==
[2020-03-20] MEDS ORDERED: MENTHOL/PHENOL 1 EACH UD MM PRN (15:16)
[2020-03-20] MEDS ORDERED: guaiFENesin 200 MG/10 ML 10 ML UNIT-DOSE CUPS PO PRN (15:16)
[2020-03-20] MEDS ORDERED: NICOTINE POLACRILEX 2 MG GUM BUC PRN (15:16)
[2020-03-20] MEDS ORDERED: ACETAMINOPHEN 325 MG TABLET (FP) PO PRN (15:16)
[2020-03-20] MEDS ORDERED: IBUPROFEN 400 MG TABLET (FP) PO PRN (15:16)
[2020-03-20] MEDS ORDERED: MAGNESIUM HYDROX 2400MG/30ML ORAL SUSPENSION 30 ML CUP PO PRN (15:16)
[2020-03-20] MEDS ORDERED: P-EPHED 60MG/TRIPROLIDI 2.5MG TABLET PO PRN (15:16)
[2020-03-20] MEDS ORDERED: MAG HYDROX/AL HYDROX/SIMETH 30 ML UNIT-DOSE CUP PO PRN (15:16)
[2020-03-20] MEDS ORDERED: LOPERAMIDE HCL 2 MG CAPSULE PO PRN (15:16)
[2020-03-20] MEDS ORDERED: MAGNESIUM CITRATE 300 ML BOTTLE PO PRN (15:16)
--- NOTE | 2020-03-20 15:20 | HP ---
[facility] Rehab Assess/Revision - Admission History Admitted to Rehab from: [facility] Date of Admission to Rehab: 03/20/2020 - Findings Detox History & Physical reviewed: Yes Concur with findings: Yes Inpatient Rehab Admission - Rehab Decision to Admit Inpatient rehab admission?: Yes - Initial Determination Are CD services needed?: Yes Free of communicable disease: Yes Not in need of hospitalization: Yes - Rehab Admission Criteria Previous failed treatment: Yes Poor recovery environment: Yes Comorbidities: No Lacks judgement: No Patient is meeting Inpatient Rehab admission criteria:: Yes
[2020-03-20] MEDS ORDERED: HYDROCORTISONE 1% TOPICAL CREAM 30 GM TUBE TP PRN (16:00)
[2020-03-20] MEDS: hydrOXYzine PAMOATE 25 MG CAPSULE (FP) PO PRN (21:29)
[2020-03-20] MEDS ORDERED: THIAMINE HCL 100 MG TABLET (FP) PO SCH (22:00)
[2020-03-20] MEDS ORDERED: MELATONIN 5 MG TABLETS PO SCH (22:00)
[2020-03-21 07:16] VITALS: BP 115/78; PULSE 72; TEMP 97.8
[2020-03-21] MEDS ORDERED: CALAMINE 8% TOPICAL LOTION 177 ML BOTTLE TP PRN (08:43)
[2020-03-21] MEDS: hydrOXYzine PAMOATE 25 MG CAPSULE (FP) PO PRN (09:52)
[2020-03-21] MEDS ORDERED: QUEtiapine FUMARATE 50 MG TABLET PO SCH ×2 (10:00→22:00)
[2020-03-21] MEDS ORDERED: PRENATAL VITAMINS W/ FOLIC ACID TABLET (FP) PO SCH (10:00)
[2020-03-21] MEDS ORDERED: NICOTINE 7 MG/24 HOURS TOPICAL PATCH TD SCH ×2 (10:00)
[2020-03-21] MEDS ORDERED: PNEUMOCOCCAL 23 VACCINE 0.5 ML VIAL IM ONE (12:00)
[2020-03-21] MEDS ORDERED: IBUPROFEN 600 MG TABLET (FP) PO PRN (14:16)
--- NOTE | 2020-03-21 14:21 | DS ---
[facility] Rehab Discharge Summary - [facility] Rehab Discharge Summary Admission Date: 03/20/20 Discharge Date: 03/21/20 - History Present History: Alcohol dependence Additional Comments: Benzo dependence. Pertinent Past History: Mr. Mabry is a 44 yo man who presents to [facility] requesting admission for alcohol use disorder. He was last here between Jun 18 and Jul 07 for detox and 2 days of Rehab. He relapsed in October of this year. PMH: arthritis PSH; none Psych: insomnia, bipolar, anxiety, depression, stopped meds in October of this year SOC: homeless on streets Legal: none - Discharge Physical Exam Vital Signs: Vital Signs Temperature 97.8 F 03/21/20 07:14 Pulse Rate 72 03/21/20 07:14 Respiratory Rate 18 03/21/20 07:14 Blood Pressure 115/78 03/21/20 07:14 O2 Sat by Pulse Oximetry (%) 98 03/21/20 07:14 Pertinent Admission Physical Exam Findings: Physical General Appearance: No Apparent Distress HEENTM: EOMI, Normocephalic, Respiratory: Respirations unlabored, No Accessory Muscle Use Neck: Supple Cardiology: Regular Rhythm & Rate, Abdominal: +Bowel Sounds, Musculoskeletal: Gait Steady Neurological: Alert, - Treatment Discharge Condition: Rehabilitated safely (Patient is leaving because 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.medically stable for discharge.) - Medication Discharge Medications: Ambulatory Orders Bupropion HCl [Wellbutrin Xl -] 150 mg PO DAILY #30 tab.sr.24h 07/06/19 Quetiapine Fumarate [Seroquel -] 50 mg PO DAILY #30 tablet 07/06/19 Quetiapine Fumarate [Seroquel -] 200 mg PO HS #30 tab 07/06/19 Bupropion HCl [Wellbutrin Xl -] 150 mg PO DAILY tab.sr.24h 03/20/20 Quetiapine Fumarate [Seroquel -] 50 mg PO DAILY tablet 03/20/20 - Medication-Assisted Treatment (MAT) Medication-Assisted Treatment (MAT): No - Discharge Instructions Diet, activity, other medical instructions: Diet: as tolerated Activity: as tolerated Other medical instructions: Please find an aftercare program. - Diagnosis (1) Alcohol dependence with uncomplicated withdrawal Current Visit: No Status: Chronic (2) Cocaine dependence Current Visit: No Status: Chronic Qualifiers: Substance use status: uncomplicated Qualified Code(s): F14.20 - Cocaine dependence, uncomplicated (3) Cannabis dependence Current Visit: No Status: Chronic - Follow-up Referral Minutes to complete discharge: 15 - AMA Did Patient Leave Against Medical Advice: No
[2020-03-21] MEDS ORDERED: PNEUMOC 13-VAL CONJ-DIP CRM/PF 0.5 ML DISP.SYRIN IM ONE (14:34)
--- NOTE | 2020-03-21 16:44 | PN ---
[facility] Progress Note Note: Psychiatry Attending's note (delayed) : Called earlier by nurse Lilia Fitch. To send scripts to [facility]. For Mr Raghavendra. Scheduled for discharge today. 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 Reason for request for psychiatric consult on 03/20/20 : validation + continuation of medications initiated at [address] [place]. No acute issues. Patient had apparently decided to leave program. For his personal reasons. Did not wait to meet with the psychiatrist. Scripts for wellbutrin XL 150 mg/daily + seroquel 200 mg/hs (30 day supply). Sent electronically to [facility].
== END 2020-03-21 14:31 | disposition home or self-care (01) | DRG 772 ==
LOC: YASAS 13:44 → Y3W 13:45
PROVIDERS: ADMIT Allergy & Immunology; ATTEND Allergy & Immunology
PROC: HZ42ZZZ Group Counseling for Substance Abuse Treatment, Cognitive-Behavioral (ICD-10-PCS; principal; 2020-03-20)
DX: F10.20 Alcohol dependence, uncomplicated (principal); F14.20 Cocaine dependence, uncomplicated; F12.20 Cannabis dependence, uncomplicated; F31.9 Bipolar disorder, unspecified; F41.8 Other specified anxiety disorders; G47.00 Insomnia, unspecified; Z91.14 Patient's other noncompliance with medication regimen; Z59.0 Homelessness
CPT/HCPCS: 90732; G0009